=== PATIENT | female | born 1990 | race American Indian/Alaskan Native ===

== ENCOUNTER 2020-01-26 10:48 | Outpatient (REF) | payer MEDICAID, SELFPAY ==
--- NOTE | 2020-01-26 | US_ITS ---
EXAMINATION: ULTRASOUND PELVIS COMPLETE CLINICAL INFORMATION: Ovarian cyst. COMPARISON: Ultrasound pelvis 04/25/2019. TECHNIQUE: A transabdominal and transvaginal imaging of pelvis is performed. FINDINGS: The uterus is anteverted, anteflexed measuring 6.7 cm in length, 3.2 cm in AP and 4.3 cm in transverse dimension. It is homogeneous in echodensity. The endometrial thickness measures 0.4 cm. There is an IUD well located within the endometrial canal in satisfactory position. The right ovary measures 3.5 x 2.4 x 2.1 cm and volume 9.2 mL. There is anechoic cyst measuring 1.9 x 1.6 x 2.0 cm. Previously right ovary measured 3.2 x 2.0 x 2.6 cm. The left ovary measures 2.7 x 2.6 x 1.5 cm and volume 5.5 mL. There is a small anechoic cyst measuring 1.3 x 0.6 x 2.0 cm. US/US transvaginal IMPRESSION: Bilateral ovarian cyst. IUD appears in correct position within the endometrial canal. The uterus is otherwise unremarkable.
--- NOTE | 2020-01-26 | US_ITS ---
EXAMINATION: ULTRASOUND PELVIS COMPLETE CLINICAL INFORMATION: Ovarian cyst. COMPARISON: Ultrasound pelvis 04/25/2019. TECHNIQUE: A transabdominal and transvaginal imaging of pelvis is performed. FINDINGS: The uterus is anteverted, anteflexed measuring 6.7 cm in length, 3.2 cm in AP and 4.3 cm in transverse dimension. It is homogeneous in echodensity. The endometrial thickness measures 0.4 cm. There is an IUD well located within the endometrial canal in satisfactory position. The right ovary measures 3.5 x 2.4 x 2.1 cm and volume 9.2 mL. There is anechoic cyst measuring 1.9 x 1.6 x 2.0 cm. Previously right ovary measured 3.2 x 2.0 x 2.6 cm. The left ovary measures 2.7 x 2.6 x 1.5 cm and volume 5.5 mL. There is a small anechoic cyst measuring 1.3 x 0.6 x 2.0 cm. US/US pelvic complete IMPRESSION: Bilateral ovarian cyst. IUD appears in correct position within the endometrial canal. The uterus is otherwise unremarkable.
== END 2020-01-26 10:49 | disposition home or self-care (01) ==
LOC: HO.US 10:48
PROVIDERS: PCP Family Medicine; Visit Provider Family Medicine
DX: N83.209 Unspecified ovarian cyst, unspecified side (principal)
CPT/HCPCS: 76830; 76856

== ENCOUNTER → 2020-06-01 10:11 | Outpatient (BNVA) | payer MEDICAID, SELFPAY | PROVIDERS: Visit Provider Advanced Practice Midwife ==

== ENCOUNTER 2020-06-09 10:09 | Outpatient (REF) | payer MEDICAID, SELFPAY ==
[2020-06-10 09:20] LABS: CT PCR NOT DETECTED (Not Detect.); NG PCR NOT DETECTED (Not Detect.)
[2020-06-10 11:29] LABS: BV Int Neg Control Negative (Negative); BV Int Pos Control Positive (Positive)
[2020-06-14 23:02] LABS: HPV mRNA E6/E7 rflx Not Detected (Not Detected)
== END 2020-06-09 10:10 | disposition home or self-care (01) ==
LOC: HO.LAB 10:09
PROVIDERS: Visit Provider Advanced Practice Midwife
DX: Z01.419 Encounter for gynecological examination (general) (routine) without abnormal findings (principal); F41.8 Other specified anxiety disorders; M54.9 Dorsalgia, unspecified; Z20.2 Contact with and (suspected) exposure to infections with a predominantly sexual mode of transmission; Z79.899 Other long term (current) drug therapy
CPT/HCPCS: 36415; 87480; 87491; 87510; 87591; 87624; 87660; 88142

== ENCOUNTER 2020-07-24 22:59 | Emergency (ER) | payer MEDICAID, SELFPAY ==
--- NOTE | ~2020-07-24 | XR_ITS ---
EXAMINATION: XR FOOT, RIGHT CLINICAL INFORMATION: Foot pain COMPARISON: None TECHNIQUE: AP, lateral, and oblique views of the right foot. FINDINGS: There is mild hallux valgus present. The bones and soft tissues are otherwise normal. No fracture. Alignment is anatomic. Joint spaces are maintained. XR/XR foot RT min 3V IMPRESSION: Mild hallux valgus with no acute finding present.
[2020-07-24 23:06] VITALS: BP 110/63; PULSE 67; RESP 17; TEMP 36.6; O2SAT 100; BMI 27.4
--- NOTE | 2020-07-24 23:21 | ED_ITS ---
HPI - Extremity Injury (Lower) General Chief Complaint: Extremity Injury, Lower Stated Complaint: TOE INJ Time Seen by Provider: 07/24/20 23:16 Source: patient Mode of arrival: ambulatory Limitations: no limitations History of Present Illness HPI Narrative: Patient comes emergency room complaining of 1st toe pain on her right foot. Patient states that yesterday she was in a trampoline park playing with her daughter, patient does not recall any injury, patient states that this morning her right 1st toe started hurting. Patient denies fever or chills, patient is able to walk, but bears weight only on the lateral aspect of her foot. Patient denies redness , states it is slightly swollen. Related Data Home Medications Medication Instructions Recorded Confirmed baclofen 5 mg tablet 5 mg PO DAILY 06/09/20 bupropion HCl 150 mg 24 hr tablet, 150 mg PO QAM 06/09/20 06/09/20 extended release levonorgestrel 20 mcg/24 hours (6 INTRAUTERINE 06/09/20 06/09/20 yrs) 52 mg intrauterine device tramadol 50 mg tablet 50 mg PO DAILY 06/09/20 06/09/20 Allergies Allergy/AdvReac Type Severity Reaction Status Date / Time No Known Allergies Allergy Verified 07/24/20 23:06 Review of Systems Review of Systems: Constitutional : No Weight loss, No Fever, No Chills, No Night Sweats, No Fatigue, No Malaise ENT/Mouth : No Hearing loss, No Ear Pain, No Nasal Congestion, No Sinus Pain, No Hoarseness, No sore throat, No Rhinorrhea, No Swallowing Difficulty Eyes: No Eye Pain, No Swelling, No Redness, No Foreign Body, No Discharge, No Vision Changes Cardiovascular : No Chest Pain, No SOB, No Dyspnea on Exertion, No Orthopnea, No Edema, No Palpitations Respiratory : No Cough, No Sputum, No Wheezing, No Smoke Exposure, No Dyspnea Gastrointestinal : No Nausea, No Vomiting, No Diarrhea, No Constipation, No abdominal Pain, No Hematochezia, No Melena Genitourinary : no irregular bleeding, No Dysuria, No Urinary Frequency, No Hematuria, No Urinary Incontinence, No Urgency, No Flank Pain, No Urinary Flow Changes, No Hesitancy Musculoskeletal : Right 1st toe pain, No Myalgias, No Joint Swelling Skin : No Skin Lesions, No rash Neuro : No Weakness, No Numbness, No Paresthesias, No Loss of Consciousness, No Dizziness, No Headache Psych : No Anxiety/Panic, No Depression, No SI/HI/AH/VH, No Social Issues, Heme/Lymph: No Bruising, No Bleeding,No Lymphadenopathy Endocrine : No Polyuria, No Polydipsia, No Temperature Intolerance [facility] Past Medical History Medical History Anxiety Asthma Back pain Depression Surgical History Hx of appendectomy Family History Family History (Updated 06/09/20 @ 10:47 by Red Hensley [facility]) Paternal Grandfather Lung cancer Mother Depressed Anxiety Bipolar 1 disorder, depressed Social History Social History (Updated 06/09/20 @ 10:48 by Red Hensley [facility]) Alcohol intake: never Smoking Status: Never smoker Advance Directives: No Patient : No Gender identity: female Physical Exam Vital Signs: Vital Signs: Last Vital Signs Temp 97.9 F 07/24/20 23:06 Pulse 67 07/24/20 23:06 Resp 17 07/24/20 23:06 BP 110/63 07/24/20 23:06 Pulse Ox 100 07/24/20 23:06 Body Mass Index 27.4 Appearance: Alert. Oriented X3. No acute distress. Eyes: Pupils equal, round and reactive to light. ENT: Pharynx normal. Neck: Normal inspection. Neck supple. No lymph nodes noted. No crepitus CVS: Normal heart rate and rhythm. Pulses normal. Normal S1 and S2 Respiratory: No respiratory distress. Breath sounds normal. No Wheezing. No rales Abdomen: Soft and nontender. No rigidity. No distention. good BS x4 Skin: Skin warm and dry. Normal skin color. Normal skin turgor. Extremities: No lower extremity edema. First toe is slightly swollen on the dorsal aspect, patient is able to flex and extend all toes, no ankle pain, seems to have pain to palpation on the dorsal aspect of the right toe and the 1st metatarsal on the right side Neuro: Oriented X 3. No motor deficit. No sensory deficit. Moving all extermities. No slurred speech. Course Course Course Narrative: I discussed the x-ray with the patient, no fracture. Patient instructed to follow-up primary care physician. Patient likely having strain versus contusion. Patient declined prescription for pain management. MDM - Extremity Injury (Lower) Imaging Data Foot x-ray: Radiologist's impression: There is mild hallux valgus present. The bones and soft tissues are otherwise normal. No fracture. Alignment is anatomic. Joint spaces are maintained. XR/XR foot RT min 3V IMPRESSION: Mild hallux valgus with no acute finding present. Discharge Plan Discharge Clinical Impression: Foot pain, right Patient Disposition: Home, Self-Care Instructions: Metatarsalgia (DC) Additional Instructions: Please follow-up with your primary care physician tomorrow. If you have any worsening or new symptoms, please return to the emergency room or call 911 Prescriptions: No Action bupropion HCl [Wellbutrin XL] 150 mg tablet extended release 24 hr 150 mg PO QAM RF: 0 tramadol 50 mg tablet 50 mg PO DAILY RF: 0 baclofen 5 mg tablet 5 mg PO DAILY RF: 0 Mirena 20 mcg/24 hours (6 yrs) 52 mg intrauterine device intrauterine RF: 0
[2020-07-24] MEDS: Acetaminophen 325 MG TABLET 650 MG PO (23:34)
== END 2020-07-25 00:18 | disposition home or self-care (01) ==
PROVIDERS: Emergency Provider Emergency Medicine; PCP Family Medicine
DX: S99.921A Unspecified injury of right foot, initial encounter (principal); M79.671 Pain in right foot; M20.11 Hallux valgus (acquired), right foot; Y93.44 Activity, trampolining; Y92.838 Other recreation area as the place of occurrence of the external cause; Y99.8 Other external cause status; Z79.899 Other long term (current) drug therapy
CPT/HCPCS: 73630; 99284

== ENCOUNTER 2020-08-01 12:37 | Outpatient (REF) | payer MEDICAID, SELFPAY ==
[2020-08-01 13:10] LABS: COVID-19 Test Negative (Negative); IDNOW Serial# 55D5AD1C
== END 2020-08-01 12:38 | disposition home or self-care (01) ==
LOC: HO.LAB 12:37
PROVIDERS: Visit Provider Internal Medicine
DX: Z20.822 Contact with and (suspected) exposure to COVID-19 (principal)
CPT/HCPCS: 36415; 87635; C9803

== ENCOUNTER 2020-11-28 09:05 | Outpatient (REF) | payer MEDICAID, SELFPAY | END 2020-11-28 09:06 | disposition home or self-care (01) | LOC: HO.LAB 09:05 | PROVIDERS: PCP Family Medicine; Visit Provider Internal Medicine | DX: Z20.822 Contact with and (suspected) exposure to COVID-19 (principal) | CPT/HCPCS: C9803; U0003; U0005 ==

== ENCOUNTER 2021-01-24 08:37 | Emergency (ER) | payer MEDICAID, SELFPAY ==
--- NOTE | ~2021-01-24 | CT_ITS ---
EXAMINATION: CT ABDOMEN AND PELVIS WITHOUT CONTRAST CLINICAL INFORMATION: Left flank and left upper quadrant pain. COMPARISON: CT abdomen and pelvis with contrast 03/31/2010. TECHNIQUE: Multidetector volumetric imaging was performed from the superior aspect of the liver through the pubic symphysis. No oral or intravenous contrast. Sagittal and coronal reformatted images were obtained on the technologist's workstation. This CT examination was performed using dose optimization techniques as appropriate, variously including the following: *Automated exposure control *Adjustment of mA and/or kV according to patient size (this includes techniques or standardized protocols for targeted exams where dose is matched to indication/reason for exam; i.e. extremities or head) *Use of iterative reconstruction technique DLP: 575 mGy-cm FINDINGS: LUNG BASES: The visualized lung bases are unremarkable. LIVER, GALLBLADDER, AND BILIARY TREE: The liver is normal in size, shape, and attenuation. No focal hepatic lesion or biliary ductal dilatation is present. The gallbladder is unremarkable with no evidence of radiopaque gallstones, gallbladder wall thickening, or obvious pericholecystic inflammatory changes. PANCREAS: Unremarkable. SPLEEN: Unremarkable. ADRENAL GLANDS: Unremarkable. KIDNEYS AND URETERS: The kidneys are normal in size, shape, and attenuation. No hydronephrosis, hydroureter, or calculi seen. No perinephric stranding. BLADDER: Unremarkable. GASTROINTESTINAL TRACT: There is no bowel obstruction or focal inflammatory changes in the bowel or adjacent mesentery. There has been prior appendectomy. There is no ascites or fluid collection. ABDOMINAL WALL: No significant hernia is appreciated. Borderline fat-containing umbilical hernia under 2 cm. LYMPH NODES: There are scattered small nodes in the mesentery. No bulky adenopathy. No retroperitoneal or deep pelvic or inguinal lymphadenopathy. VASCULAR: Unremarkable. PELVIC VISCERA: IUD in position. No adnexal mass. OSSEOUS STRUCTURES: Pectus excavatum. Bilateral L5 spondylolysis with grade 2 spondylolisthesis and degenerative changes lumbosacral junction. CT/CT abdomen pelvis wo con IMPRESSION: 1. No hydronephrosis, calculi, or perinephric stranding. 2. Prior appendectomy. No bowel obstruction or focal inflammatory changes. 3. Multiple small mesenteric nodes. No lymphadenopathy. 4. Pectus excavatum. Bilateral L5 spondylolysis with grade 2 spondylolisthesis.
[2021-01-24 08:55] VITALS: BP 104/52; PULSE 75; RESP 18; TEMP 36.9; O2SAT 99; BMI 27.7
[2021-01-24 09:25] LABS: Appearance Urine HAZY; Color Urine YELLOW; Glucose Urine UA NEG (NEG); Leukocyte Esterase Urine NEG (NEG); Nitrite Urine NEG (NEG); Specific Gravity - Urine >= 1.030 (1.005-1.025); Urine Blood TRACE (NEG); Urine Ketones NEG (NEG); Urine Protein NEG (NEG-TRACE)
[2021-01-24 10:02] LABS: Bacteria Urine TRACE /LPF; Mucus Urine 2+ /LPF; RBC Urine 0-2 /HPF (0); Squamous Epithelial Cell Urine 2+ /LPF; WBC Urine 0 /HPF (0-4)
[2021-01-24] MEDS: 0.9 % Sodium Chloride 1,000 ML 999 ML IVCONT (10:07)
[2021-01-24 10:08] LABS: MANUAL DIFF FLAG NO
[2021-01-24 10:09] LABS: Basophils Percent Auto 0.5 % (0-2); Eosinophils Percent Auto 0.7 % (0-4); Hematocrit 36.9 % (37.0-47.0); Hemoglobin 12.5 g/dl (12.0-16.0); Imm Gran Abs Auto 0.01 X10*3/uL (0.00-0.03); Imm Gran Pct Auto 0.2 % (0.0-0.4); Lymphocytes Absolute Auto 1.5 X10*3/uL (1.2-4.9); Lymphocytes Percent Auto 25.5 % (20-40); Mean Corpuscular HGB Conc 33.9 g/dl (31.0-35.0); Mean Corpuscular Volume 88.7 fL (80.0-98.0); Mean Platelet Volume 9.6 fL (9.4-12.3); Monocytes Absolute Auto 0.4 X10*3/uL (0.1-1.2); Monocytes Percent Auto 6.3 % (2-11); Neutrophils Absolute Auto 4.04 x10*3/uL (2.0-8.3); Neutrophils Percent Auto 66.8 % (45-73); Platelet Count 248 X10*3/uL (160-400); Red Blood Count 4.16 X10*6/uL (4.20-5.50)
[2021-01-24 10:22] LABS: UPreg QC Valid YES; Urine Pregnancy NEGATIVE (NEGATIVE)
--- NOTE | 2021-01-24 10:25 | ED_ITS ---
HPI - Abdominal Pain General Chief Complaint: Abdominal Pain Stated Complaint: lt side abd & back pain Time Seen by Provider: 01/24/21 09:52 Source: patient Mode of arrival: ambulatory Limitations: no limitations History of Present Illness HPI narrative: 30 years old female came in for evaluation of abdominal pain. Abdominal pain started 2 days ago mostly in the left upper quadrant area, radiates to left flank area, pain is intermittent, moderate 5 out of 10, no relieving factor, no aggravating factor, pain is associated with nausea but no vomiting, normal bowel movements, no dysuria, no frequency urination, no vaginal bleeding, no vaginal discharge, no fever, no chills. Related Data Home Medications Medication Instructions Recorded Confirmed baclofen 5 mg tablet 5 mg PO DAILY 06/09/20 bupropion HCl 150 mg 24 hr tablet, 150 mg PO QAM 06/09/20 06/09/20 extended release (Wellbutrin XL) levonorgestrel 20 mcg/24 hours (7 INTRAUTERINE 06/09/20 06/09/20 yrs) 52 mg intrauterine device (Mirena) tramadol 50 mg tablet 50 mg PO DAILY 06/09/20 06/09/20 Allergies Allergy/AdvReac Type Severity Reaction Status Date / Time No Known Allergies Allergy Verified 07/24/20 23:06 Review of Systems Review of Systems All other systems are reviewed and are negative Constitutional: Reports as per HPI and Reports no additional constitutional complaints Eyes: Reports as per HPI and Reports no additional eye complaints Reports system reviewed and no additional complaints, except as documented Cardiovascular: Reports as per HPI and Reports no additional cardiovascular complaints Respiratory: Reports as per HPI and Reports no additional respiratory complaints Gastrointestinal: Reports as per HPI and Reports no additional gastrointestinal complaints Genitourinary: Reports no additional female genitourinary complaints Musculoskeletal: Reports no additional musculoskeletal complaints Skin/Breast: Reports system reviewed and no additional complaints, except as docu Psychiatric: Reports no additional psychiatric complaints Endocrine: Reports no additional endocrine complaints Hematologic/Lymphatic: Reports no additional hematologic/lymphatic complaints Allergic/Immunologic: Reports no additional allergic/immunologic complaints Reports system reviewed and no additional complaints, except as documented and Reports Abnormal speech present Physical Exam Vital Signs: Vital Signs: Last Vital Signs Temp 98.4 F 01/24/21 08:55 Pulse 75 01/24/21 08:55 Resp 18 01/24/21 08:55 BP 104/52 L 01/24/21 08:55 Pulse Ox 99 01/24/21 08:55 Body Mass Index 27.7 Vital signs have been reviewed as appeared to be correct. Blood pressure normal. Heart rate normal. Respiration rate normal. Temperature normal. Oxygen saturation normal. Appearance: Alert. Oriented X3. No acute distress. Head: Normal external exam. Normocephalic. Atraumatic. No [place] signs noted. No raccoon eyes noted Eyes: PERRLA. EOMI. Conjunctiva and sclera normal. Eyelids normal. ENT: TM's Normal. Pharynx normal. Uvula midline. Moist mucous membranes. No trismus noted. No drooling noted. No muffled voice noted. Neck: Normal inspection. Neck supple. FROM. No adenopathy. Thyroid Normal. No meningeal signs. No neck mass noted. CVS: Normal heart rate and rhythm. Heart sound normal. No murmurs noted. Pulses normal throughout. Respiratory: No respiratory distress. Painless inspiration. Breath sounds normal. No wheezes/rales/rhonchi noted. Chest nontender. No accessory muscle usage noted or decreased air movement noted. Abdomen: Soft and nontender. Bowel sounds normal in all 4 quadrants. No distention noted. No organomegaly noted. No visible injury noted. Back: No CVA tenderness. Full range of motion noted. Skin: Skin warm and dry. Normal skin color. Normal skin turgor. No rashes/lesions/lacerations noted. Extremities: No lower extremity edema. Extremities exhibit normal range of motion. Extremities nontender. Neuro: Oriented X 3. Cranial nerve exam: II-XII are grossly intact No motor deficit. No sensory deficit. Reflexes normal. Course Course Course Narrative: Assessment and plan. 30-year-old female came in for evaluation of left upper abdominal pain, no fever chills, unremarkable labs, patient had also unremarkable abdominal CT. Will discharge, instructed to use Tylenol/ibuprofen p.r.n. pain. MDM - Abdominal Pain Lab Data Attestation: I reviewed the patient's lab results. Result diagrams: 01/24/21 09:57 01/24/21 09:57 Labs: Lab Results 01/24/21 01/24/21 01/24/21 Range/Units 09:17 09:30 09:57 WBC 6.0 (4.8-10.8) X10*3/uL RBC 4.16 L (4.20-5.50) X10*6/uL Hgb 12.5 (12.0-16.0) g/dl Hct 36.9 L (37.0-47.0) % MCV 88.7 (80.0-98.0) fL MCH 30.0 (27.0-33.0) pg MCHC 33.9 (31.0-35.0) g/dl RDW 12.0 (11.0-16.0) % Plt Count 248 (160-400) X10*3/uL MPV 9.6 (9.4-12.3) fL Immature Gran % (Auto) 0.2 (0.0-0.4) % Neut % (Auto) 66.8 (45-73) % Lymph % (Auto) 25.5 (20-40) % [place] % (Auto) 6.3 (2-11) % Eos % (Auto) 0.7 (0-4) % Baso % (Auto) 0.5 (0-2) % Lymph # (Auto) 1.5 (1.2-4.9) X10*3/uL [place] # (Auto) 0.4 (0.1-1.2) X10*3/uL Eos # (Auto) 0.0 (0.0-0.4) X10*3/uL Baso # (Auto) 0.0 (0.0-0.2) X10*3/uL Abs Immat Gran (auto) 0.01 (0.00-0.03) X10*3/uL Absolute Neuts (auto) 4.04 (2.0-8.3) x10*3/uL Absolute Nucleated RBC 0.000 (0.0-0.012) X10*3/uL Nucleated RBC % (auto) 0.0 (0.0-0.2) /100WBC Sodium (135-145) mmol/L Potassium (3.3-5.1) mmol/L Chloride (96-108) mmol/L Carbon Dioxide (22-29) mmol/L Anion Gap (12-20) BUN (9-16) mg/dL Creatinine (0.5-1.4) mg/dL Estim Creat Clear Calc Estimated GFR Random Glucose (60-115) mg/dL Calcium (8.4-10.2) mg/dL Total Bilirubin (0.0-1.0) mg/dL Direct Bilirubin (0.0-0.5) mg/dL AST (5-31) U/L ALT (0-31) U/L Alkaline Phosphatase (39-117) U/L Total Protein (6.5-8.0) g/dL Albumin (3.5-5.0) g/dL Lipase (8-78) U/L Urine Color YELLOW Urine Appearance HAZY Urine pH 6.0 (5.0-8.0) Ur Specific [place] >= 1.030 H (1.005-1.025) Urine Protein NEG (NEG-TRACE) MG/DL Urine Glucose (UA) NEG (NEG) MG/DL Urine Ketones NEG (NEG) MG/DL Urine Blood TRACE (NEG) Urine Nitrite NEG (NEG) Ur Leukocyte Esterase NEG (NEG) Urine RBC 0-2 (0) /HPF Urine WBC 0 (0-4) /HPF Ur Squamous Epith Cells 2+ /LPF Urine Bacteria TRACE /LPF Urine Mucus 2+ /LPF Urine Test NEGATIVE (NEGATIVE) 01/24/21 Range/Units 09:57 WBC (4.8-10.8) X10*3/uL RBC (4.20-5.50) X10*6/uL Hgb (12.0-16.0) g/dl Hct (37.0-47.0) % MCV (80.0-98.0) fL MCH (27.0-33.0) pg MCHC (31.0-35.0) g/dl RDW (11.0-16.0) % Plt Count (160-400) X10*3/uL MPV (9.4-12.3) fL Immature Gran % (Auto) (0.0-0.4) % Neut % (Auto) (45-73) % Lymph % (Auto) (20-40) % [place] % (Auto) (2-11) % Eos % (Auto) (0-4) % Baso % (Auto) (0-2) % Lymph # (Auto) (1.2-4.9) X10*3/uL [place] # (Auto) (0.1-1.2) X10*3/uL Eos # (Auto) (0.0-0.4) X10*3/uL Baso # (Auto) (0.0-0.2) X10*3/uL Abs Immat Gran (auto) (0.00-0.03) X10*3/uL Absolute Neuts (auto) (2.0-8.3) x10*3/uL Absolute Nucleated RBC (0.0-0.012) X10*3/uL Nucleated RBC % (auto) (0.0-0.2) /100WBC Sodium 136 (135-145) mmol/L Potassium 3.9 (3.3-5.1) mmol/L Chloride 105 (96-108) mmol/L Carbon Dioxide 25 (22-29) mmol/L Anion Gap 10 L (12-20) BUN 15 (9-16) mg/dL Creatinine 0.69 (0.5-1.4) mg/dL Estim Creat Clear Calc 125.6 Estimated GFR > 60 Random Glucose 93 (60-115) mg/dL Calcium 8.8 (8.4-10.2) mg/dL Total Bilirubin 0.8 (0.0-1.0) mg/dL Direct Bilirubin 0.3 (0.0-0.5) mg/dL AST 20 (5-31) U/L ALT 13 (0-31) U/L Alkaline Phosphatase 53 (39-117) U/L Total Protein 7.0 (6.5-8.0) g/dL Albumin 4.4 (3.5-5.0) g/dL Lipase 21 (8-78) U/L Urine Color Urine Appearance Urine pH (5.0-8.0) Ur Specific [place] (1.005-1.025) Urine Protein (NEG-TRACE) MG/DL Urine Glucose (UA) (NEG) MG/DL Urine Ketones (NEG) MG/DL Urine Blood (NEG) Urine Nitrite (NEG) Ur Leukocyte Esterase (NEG) Urine RBC (0) /HPF Urine WBC (0-4) /HPF Ur Squamous Epith Cells /LPF Urine Bacteria /LPF Urine Mucus /LPF Urine Test (NEGATIVE) Imaging Data CT scan - abdomen: Radiologist's impression: 1. No hydronephrosis, calculi, or perinephric stranding. 2. Prior appendectomy. No bowel obstruction or focal inflammatory changes. 3. Multiple small mesenteric nodes. No lymphadenopathy. 4. Pectus excavatum. Bilateral L5 spondylolysis with grade 2 spondylolisthesis. Discharge Plan Discharge Clinical Impression: Abdominal pain Patient Disposition: Home, Self-Care Instructions: Abdominal Pain (ED) Prescriptions: No Action bupropion HCl [Wellbutrin XL] 150 mg tablet extended release 24 hr 150 mg PO QAM RF: 0 tramadol 50 mg tablet 50 mg PO DAILY RF: 0 baclofen 5 mg tablet 5 mg PO DAILY RF: 0 Mirena 20 mcg/24 hours (6 yrs) 52 mg intrauterine device intrauterine RF: 0 Referrals: Kellen Mccray DO [Primary Care Provider] - 2 days [facility] Past Medical History Medical History Anxiety Asthma Back pain Depression Surgical History Hx of appendectomy Family History Family History Paternal Grandfather Lung cancer Mother Depressed Anxiety Bipolar 1 disorder, depressed Social History Social History Alcohol intake: never Advance Directives: No Patient : No Gender identity: Female
[2021-01-24 10:34] LABS: Alanine Aminotransferase 13 U/L (0-31); Albumin Level 4.4 g/dL (3.5-5.0); Alkaline Phosphatase 53 U/L (39-117); Anion Gap 10 (12-20); Aspartate Amino Transferase 20 U/L (5-31); Bilirubin Direct 0.3 mg/dL (0.0-0.5); Bilirubin Total 0.8 mg/dL (0.0-1.0); Blood Urea Nitrogen 15 mg/dL (9-16); Calcium 8.8 mg/dL (8.4-10.2); Carbon Dioxide 25 mmol/L (22-29); Chloride 105 mmol/L (96-108); Creatinine Clr Calc Pharmacy 125.6; Estimated Glomerular Filt Rate > 60; Glucose Random 93 mg/dL (60-115); Lipase 21 U/L (8-78); Potassium 3.9 mmol/L (3.3-5.1); Sodium 136 mmol/L (135-145)
[2021-01-24] MEDS: Ketorolac Tromethamine 15 MG/ML VIAL IVPUSH (12:50)
== END 2021-01-24 13:41 | disposition home or self-care (01) ==
PROVIDERS: Emergency Provider Emergency Medicine; PCP Family Medicine
DX: R10.12 Left upper quadrant pain (principal); J45.909 Unspecified asthma, uncomplicated
CPT/HCPCS: 36415; 74176; 80048; 80076; 81001; 81025; 83690; 85025; 87086; 96361; 96374; 99284; J1885

== ENCOUNTER → 2021-04-02 10:52 | Outpatient (BNVA) | payer MEDICAID, SELFPAY | PROVIDERS: PCP Family Medicine; Visit Provider Advanced Practice Midwife ==

== ENCOUNTER 2021-05-03 07:48 | Emergency (ER) | payer MEDICAID, SELFPAY ==
--- NOTE | ~2021-05-03 | US_ITS ---
EXAMINATION: US PELVIS TRANSVAGINAL CLINICAL INFORMATION: Bilateral pelvic pain. Question cyst. COMPARISON: CT abdomen of May 03, 2021 and pelvic study of January 26, 2020 TECHNIQUE: Transcutaneous and transvaginal pelvic ultrasound. Transvaginal scanning was performed after voiding to better evaluate the endometrium and adnexa. FINDINGS: The uterus measures 8.2 x 3.8 x 4.4 cm. The uterus is anteverted. No suspicious abnormalities region of the cervix. The uterine contour is smooth. The endometrium measures 0.7 cm. Intrauterine device appears in normal position. No focal abnormalities within the myometrium. The right ovary measures approximately 3.1 x 1.5 x 1.9 cm. The calculated right ovarian volume is approximately 4.6 mL. There is normal vascular flow to the ovary. There are numerous follicular cysts present. No abnormal masses identified. The left ovary measures 3.8 x 2.1 x 3.7 cm. The calculated left ovarian volume is approximately 15.5 mL. Follicular cysts present. Normal vascular flow. There is moderate free fluid present about the pelvis. US/US pelvic ovarian doppler IMPRESSION: No adnexal abnormality appreciated. Moderate pelvic free fluid. Intrauterine device appears in good position.
--- NOTE | ~2021-05-03 | CT_ITS ---
EXAMINATION: CT ABDOMEN AND PELVIS WITH CONTRAST CLINICAL INFORMATION: Upper abdominal pain. Low pelvic pain. COMPARISON: CT abdomen and pelvis 01/24/2021. TECHNIQUE: Multidetector volumetric images were obtained from the superior aspect of the liver through the pubic symphysis following administration 85 mL of Omnipaque 350 intravenous contrast. Sagittal and coronal reformatted images were obtained on the technologist's workstation. Oral contrast: No This CT examination was performed using dose optimization techniques as appropriate, variously including the following: *Automated exposure control *Adjustment of mA and/or kV according to patient size (this includes techniques or standardized protocols for targeted exams where dose is matched to indication/reason for exam; i.e. extremities or head) *Use of iterative reconstruction technique DLP: 600 mGy-cm FINDINGS: LUNG BASES: The lung bases are clear. The heart size is normal. The anterior chest wall appears asymmetric. LIVER, GALLBLADDER, AND BILIARY TREE: The liver is normal in size, shape, and attenuation. There is an 8 mm hypodensity in the right hepatic lobe measuring 43 Hounsfield units on axial image 9/3.. Is a new finding since 01/24/2021. No additional lesions are seen. There is no intrahepatic ductal dilatation. The gallbladder is unremarkable with no evidence of radiopaque gallstones, gallbladder wall thickening, or obvious pericholecystic inflammatory changes. PANCREAS: Unremarkable. SPLEEN: Unremarkable. ADRENAL GLANDS: Unremarkable. KIDNEYS AND URETERS: The kidneys are normal in size, shape, and attenuation. No hydronephrosis, hydroureter, or calculi seen. No perinephric stranding. BLADDER: Unremarkable. GASTROINTESTINAL TRACT: There is scattered stool and gas seen throughout the colon without significant distention. The small bowel loops are normal caliber. The stomach is nondistended. ABDOMINAL WALL: No significant hernia seen. LYMPH NODES: Small shotty mesenteric lymph nodes. VASCULAR: Unremarkable. PELVIC VISCERA: The uterus is anteverted with an IUD in place. There is small amount of free fluid. There is no adnexal mass. There are small shotty lymph nodes seen in the inguinal region. OSSEOUS STRUCTURES: There is grade 2 anterolisthesis L5-S1 with degenerative vacuum disc phenomena L5-S1 disc level. 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 CT/CT abdomen pelvis w con IMPRESSION: Small amount of free fluid in cul-de-sac. Mild constipation. Appendectomy changes. No acute intra-abdominal process seen. No major change from previous exam 01/24/2021
--- NOTE | ~2021-05-03 | US_ITS ---
EXAMINATION: US PELVIS TRANSVAGINAL CLINICAL INFORMATION: Bilateral pelvic pain. Question cyst. COMPARISON: CT abdomen of May 03, 2021 and pelvic study of January 26, 2020 TECHNIQUE: Transcutaneous and transvaginal pelvic ultrasound. Transvaginal scanning was performed after voiding to better evaluate the endometrium and adnexa. FINDINGS: The uterus measures 8.2 x 3.8 x 4.4 cm. The uterus is anteverted. No suspicious abnormalities region of the cervix. The uterine contour is smooth. The endometrium measures 0.7 cm. Intrauterine device appears in normal position. No focal abnormalities within the myometrium. The right ovary measures approximately 3.1 x 1.5 x 1.9 cm. The calculated right ovarian volume is approximately 4.6 mL. There is normal vascular flow to the ovary. There are numerous follicular cysts present. No abnormal masses identified. The left ovary measures 3.8 x 2.1 x 3.7 cm. The calculated left ovarian volume is approximately 15.5 mL. Follicular cysts present. Normal vascular flow. There is moderate free fluid present about the pelvis. US/US pelvic and transvaginal IMPRESSION: No adnexal abnormality appreciated. Moderate pelvic free fluid. Intrauterine device appears in good position.
[2021-05-03 08:10] VITALS: BP 113/49; PULSE 68; RESP 14; O2SAT 99
[2021-05-03 08:12] VITALS: RESP 18; O2SAT 98; BMI 27.4
--- NOTE | 2021-05-03 08:25 | PC.NURSE ---
reports abd pain diffusely, denies n/v/d. no obvious distress. basic labs drawn and iv established. awaiting primary eval by provider.
[2021-05-03 08:28] LABS: Hematocrit 37.9 % (37.0-47.0); Hemoglobin 12.6 g/dl (12.0-16.0); Mean Corpuscular HGB Conc 33.2 g/dl (31.0-35.0); Mean Corpuscular Hemoglobin 29.3 pg (27.0-33.0); Mean Corpuscular Volume 88.1 fL (80.0-98.0); Mean Platelet Volume 9.7 fL (9.4-12.3); Platelet Count 223 X10*3/uL (160-400); Red Cell Distribution Width 11.9 % (11.0-16.0)
[2021-05-03 08:50] LABS: COVID-19 Test Negative (Negative); IDNOW Serial# 55D5AD1C
[2021-05-03 08:51] LABS: Anion Gap 9 (12-20); Blood Urea Nitrogen 19 mg/dL (9-16); Calcium 8.9 mg/dL (8.4-10.2); Carbon Dioxide 28 mmol/L (22-29); Chloride 102 mmol/L (96-108); Creatinine Clr Calc Pharmacy 118.7; Estimated Glomerular Filt Rate > 60; Glucose Random 101 mg/dL (60-115); Lipase 25 U/L (8-78); Potassium 3.8 mmol/L (3.3-5.1); Sodium 135 mmol/L (135-145)
[2021-05-03] MEDS: ondansetron HCL 4 MG/2 ML VIAL IVPUSH (08:56)
[2021-05-03] MEDS: Morphine Sulfate 4 MG/ML CARTRIDGE IVPUSH ×2 (08:56→11:41)
[2021-05-03] MEDS: 0.9 % Sodium Chloride 1,000 ML 999 ML IV (08:57)
[2021-05-03 09:37] LABS: HCG Quantitative < 2 mIU/mL
[2021-05-03 10:07] LABS: Appearance Urine CLEAR; Color Urine STRAW; Glucose Urine UA NEG (NEG); Leukocyte Esterase Urine TRACE (NEG); Nitrite Urine NEG (NEG); Specific Gravity - Urine <= 1.005 (1.005-1.025); UACC Culture Trigger YES; Urine Blood TRACE (NEG); Urine Ketones NEG (NEG); Urine Protein NEG (NEG-TRACE)
[2021-05-03 10:10] LABS: Urine Pregnancy NEGATIVE (NEGATIVE)
[2021-05-03 10:11] LABS: UPreg QC Valid YES
[2021-05-03 11:00] LABS: RBC Urine 0 /HPF (0); Squamous Epithelial Cell Urine 1+ /LPF
--- NOTE | 2021-05-03 11:39 | ED.ABDPAIN ---
HPI - Abdominal Pain General Chief Complaint: Abdominal Pain Stated Complaint: abd pain Time Seen by Provider: 05/03/21 08:05 Source: patient Mode of arrival: ambulatory Limitations: no limitations History of Present Illness HPI narrative: 31-year-old female presents with sudden severe abdominal pain that woke her from sleep at 07:00 this morning. Patient states the pain started in her upper left abdomen and migrated to her bilateral pelvis. She feels pressure in her back from the pain. Patient had nausea when pain 1st started, she is not nauseous now. The pain was constant and was a 10/10, and is slowly getting better, now pain is 7/10. Patient has an IUD, and is due for a new IUD in May. She has had one and one vaginal . no concerns for STDs. Regular bowel movements, no dark tarry or bloody stools She has a history of ovarian cysts, and states that it feels like ovarian cyst. No vaginal discharge, no vaginal bleeding, no dysuria, no urinary frequency or urgency, no hematuria, no fevers. History of appendectomy. Related Data Home Medications Medication Instructions Recorded Confirmed baclofen 5 mg tablet 5 mg PO DAILY 06/09/20 bupropion HCl 150 mg 24 hr tablet, 150 mg PO QAM 06/09/20 06/09/20 extended release (Wellbutrin XL) levonorgestrel 20 mcg/24 hours (7 INTRAUTERINE 06/09/20 06/09/20 yrs) 52 mg intrauterine device (Mirena) tramadol 50 mg tablet 50 mg PO DAILY 06/09/20 06/09/20 acetaminophen 650 mg 0 mg PO 04/02/21 tablet,extended release (Mapap Arthritis Pain) baclofen 10 mg tablet 10 mg PO TID 04/02/21 buspirone 10 mg tablet 10 mg PO BID 04/02/21 cholecalciferol (vitamin D3) 50 50 mcg PO DAILY 04/02/21 mcg (2,000 unit) capsule diclofenac sodium 50 mg 50 mg PO BID 04/02/21 tablet,delayed release pantoprazole 20 mg tablet,delayed 20 mg PO DAILY 04/02/21 release simethicone 125 mg capsule 0 mg PO 04/02/21 Previous Rx's Medication Instructions Recorded ketorolac 10 mg tablet 10 mg PO TID 3 Days #9 tab 05/03/21 Allergies Allergy/AdvReac Type Severity Reaction Status Date / Time No Known Allergies Allergy Verified 04/02/21 10:53 Review of Systems Constitutional: Denies body ache(s), Denies chills, Denies fatigue, Denies fever(s), Denies headache(s), Denies malaise and Denies weakness Eyes: Denies diplopia Denies vertigo, Denies dizziness, Denies otalgia, Denies headache(s), Denies mouth pain, Denies post nasal drip, Denies sinus pain, Denies sinus pressure, Denies sore throat and Denies throat swelling Cardiovascular: Denies chest pain, Denies syncope, Denies leg edema, Denies lightheadedness, Denies Loss of Consciousness, Denies palpitations and Denies dyspnea Respiratory: Denies chest congestion, Denies cough and Denies dyspnea Gastrointestinal: Reports abdominal pain, Denies hematochezia, Denies constipation, Denies diarrhea, Reports nausea and Denies vomiting Genitourinary: Denies genital pruritis, Denies genital lesions, Denies dysmenorrhea, Denies dysuria, Reports pelvic pain, Denies sexual dysfunction, Denies flank pain, Denies urinary incontinence, Denies urinary hesitancy, Denies urinary urgency, Denies vaginal discharge and Denies vaginal pruritus Musculoskeletal: Reports no additional musculoskeletal complaints Denies confusion, Denies vertigo, Denies dizziness, Denies syncope, Denies headache(s) and Denies weakness Psychiatric: Denies anxiety, Denies confusion and Denies depression Endocrine: Denies fatigue and Denies palpitations Allergic/Immunologic: Denies throat swelling PMFSH Past Medical History Medical History Anxiety Asthma Back pain Depression Surgical History Hx of appendectomy Family History Family History Paternal Grandfather Lung cancer Mother Depressed Anxiety Bipolar 1 disorder, depressed Social History Social History Alcohol intake: current Alcohol intake frequency: holidays/special occasions only Patient Tobacco Use Status: Never used Tobacco Use of substances other than those prescribed or required for medical reasons: No Advance Directives: No Advance Directives Information Provided: Yes Patient : No Gender identity: Female Course Course Course Narrative: 31-year-old female with abdominal pain that woke her out from sleep this morning and migrated to her lower abdomen and pelvis. On exam, patient in no apparent distress,, under to palpation in upper left and upper right abdomen, tender in lower left lower right abdomen. No guarding. Patient given morphine, fluids, Zofran Patient is not , chemistry and hematology are within normal limits, no elevated lipase, COVID negative. Urine shows trace leukocyte esterase. CT shows a small amount of free fluid in cul-de-sac with mild constipation, no significant change from January 2021. will get ultrasound to more fully evaluate ovaries and rule out torsion Reevaluation(s) Reevaluation #1: US shows normal vascular flow discussed results with patient, counseled patient to follow-up with primary care provider, primary care provider may give her a GI referral, As this is her 2nd presentation to the emergency room in 3 months for abdominal pain. Told patient to return to emergency room she had a sudden severe abdominal pain, fevers, intractable vomiting, or any other new or concerning symptoms. Patient verbalized agreement understanding of plan. US/US pelvic ovarian doppler IMPRESSION: No adnexal abnormality appreciated. ? Moderate pelvic free fluid. ? Intrauterine device appears in good position. MDM - Abdominal Pain Lab Data Result diagrams: 05/03/21 08:21 05/03/21 08:21 Labs: Lab Results 05/03/21 05/03/21 05/03/21 Range/Units 08:21 08:21 08:21 WBC 7.0 (4.8-10.8) X10*3/uL RBC 4.30 (4.20-5.50) X10*6/uL Hgb 12.6 (12.0-16.0) g/dl Hct 37.9 (37.0-47.0) % MCV 88.1 (80.0-98.0) fL MCH 29.3 (27.0-33.0) pg MCHC 33.2 (31.0-35.0) g/dl RDW 11.9 (11.0-16.0) % Plt Count 223 (160-400) X10*3/uL MPV 9.7 (9.4-12.3) fL Absolute Nucleated RBC 0.000 (0.0-0.012) X10*3/uL Nucleated RBC % (auto) 0.0 (0.0-0.2) /100WBC Sodium 135 (135-145) mmol/L Potassium 3.8 (3.3-5.1) mmol/L Chloride 102 (96-108) mmol/L Carbon Dioxide 28 (22-29) mmol/L Anion Gap 9 L (12-20) BUN 19 H (9-16) mg/dL Creatinine 0.72 (0.5-1.4) mg/dL Estim Creat Clear Calc 118.7 Estimated GFR > 60 Random Glucose 101 (60-115) mg/dL Calcium 8.9 (8.4-10.2) mg/dL Lipase 25 (8-78) U/L Beta HCG, Quant < 2 mIU/mL Urine Color Urine Appearance Urine pH (5.0-8.0) Ur Specific [place] (1.005-1.025) Urine Protein (NEG-TRACE) MG/DL Urine Glucose (UA) (NEG) MG/DL Urine Ketones (NEG) MG/DL Urine Blood (NEG) Urine Nitrite (NEG) Ur Leukocyte Esterase (NEG) Urine RBC (0) /HPF Urine WBC (0-4) /HPF Ur Squamous Epith Cells /LPF Urine Bacteria /LPF Urine Test (NEGATIVE) COVID-19 (SHAAN) Negative (Negative) COVID-19 Clin Com See Note 05/03/21 05/03/21 Range/Units 09:59 09:59 WBC (4.8-10.8) X10*3/uL RBC (4.20-5.50) X10*6/uL Hgb (12.0-16.0) g/dl Hct (37.0-47.0) % MCV (80.0-98.0) fL MCH (27.0-33.0) pg MCHC (31.0-35.0) g/dl RDW (11.0-16.0) % Plt Count (160-400) X10*3/uL MPV (9.4-12.3) fL Absolute Nucleated RBC (0.0-0.012) X10*3/uL Nucleated RBC % (auto) (0.0-0.2) /100WBC Sodium (135-145) mmol/L Potassium (3.3-5.1) mmol/L Chloride (96-108) mmol/L Carbon Dioxide (22-29) mmol/L Anion Gap (12-20) BUN (9-16) mg/dL Creatinine (0.5-1.4) mg/dL Estim Creat Clear Calc Estimated GFR Random Glucose (60-115) mg/dL Calcium (8.4-10.2) mg/dL Lipase (8-78) U/L Beta HCG, Quant mIU/mL Urine Color STRAW Urine Appearance CLEAR Urine pH 6.0 (5.0-8.0) Ur Specific [place] <= 1.005 (1.005-1.025) Urine Protein NEG (NEG-TRACE) MG/DL Urine Glucose (UA) NEG (NEG) MG/DL Urine Ketones NEG (NEG) MG/DL Urine Blood TRACE (NEG) Urine Nitrite NEG (NEG) Ur Leukocyte Esterase TRACE H (NEG) Urine RBC 0 (0) /HPF Urine WBC 1-4 (0-4) /HPF Ur Squamous Epith Cells 1+ /LPF Urine Bacteria NONE /LPF Urine Test NEGATIVE (NEGATIVE) COVID-19 (SHAAN) (Negative) COVID-19 Clin Com Discharge Plan Discharge Clinical Impression: Abdominal pain Patient Disposition: Home, Self-Care Instructions: Abdominal Pain (ED) Additional Instructions: Please call your primary care provider for follow-up appointment on today's emergency room visit. Please return to emergency room if you have worsening abdominal pain, fevers, urine able to eat or drink, your intractable vomiting or nausea, or for any other new or concerning symptoms. Do not take diclofenac while taking ketorolac Prescriptions: New ketorolac 10 mg tablet 10 mg PO TID 3 Days Qty: 9 0RF No Action bupropion HCl [Wellbutrin XL] 150 mg tablet extended release 24 hr 150 mg PO QAM 0RF tramadol 50 mg tablet 50 mg PO DAILY 0RF baclofen 5 mg tablet 5 mg PO DAILY 0RF Mirena 20 mcg/24 hours (6 yrs) 52 mg intrauterine device intrauterine 0RF diclofenac sodium 50 mg tablet,delayed release (DR/EC) 50 mg PO BID 0RF acetaminophen [Mapap Arthritis Pain] 650 mg tablet extended release 0 mg PO 0RF baclofen 10 mg tablet 10 mg PO TID 0RF cholecalciferol (vitamin D3) 50 mcg (2,000 unit) capsule 50 mcg PO DAILY 0RF simethicone 125 mg capsule 0 mg PO 0RF pantoprazole 20 mg tablet,delayed release (DR/EC) 20 mg PO DAILY 0RF buspirone 10 mg tablet 10 mg PO BID 0RF Interventions: ED Discharge Assessment Last Done: 05/03/21 13:54 Discharge Date/Time: 05/03/21 13:55
[2021-05-03] MEDS: Ketorolac Tromethamine 15 MG/ML VIAL IVPUSH (13:53)
== END 2021-05-03 13:55 | disposition home or self-care (01) ==
PROVIDERS: Physician Assistant; Emergency Provider Emergency Medicine; PCP Family Medicine
DX: R10.12 Left upper quadrant pain (principal); R60.0 Localized edema; Z20.822 Contact with and (suspected) exposure to COVID-19; Z79.899 Other long term (current) drug therapy
CPT/HCPCS: 36415; 74177; 76830; 76856; 80048; 81001; 81025; 83690; 84702; 85027; 87086; 87635; 93975; 96361; 96374; 96375; 96376; 99284; 99285; J1885; J2270; J2405

== ENCOUNTER 2021-06-07 08:07 | Emergency (ER) | payer MEDICAID, SELFPAY ==
[2021-06-07 08:10] VITALS: BP 118/68; PULSE 91; RESP 17; TEMP 36.6; O2SAT 98; BMI 28.9
[2021-06-07] MEDS: diphenhydrAMINE HCL 25 MG TABLET 50 MG PO (09:15)
[2021-06-07] MEDS: predniSONE 20 MG TABLET 40 MG PO (09:15)
[2021-06-07] MEDS: Docusate Sodium 100 MG/10 ML LIQUID PO (09:16)
--- NOTE | 2021-06-07 09:29 | ED.GENADULT ---
HPI - General Adult General Chief complaint: General Medical Stated complaint: facial swelling Time Seen by Provider: 06/07/21 08:55 Source: patient Mode of arrival: ambulatory Limitations: no limitations History of Present Illness HPI narrative: 31 y/o female presents to the ER c/o right ear being clogged for the last 3 days as well as new onset of upper lip and left sided facial swelling that she woke up with yesterday. She denies any tongue swelling, difficulty swallowing or wheezing. No history of any allergies and she denies any new foods of medications. She has been using topical drops in her ear to help with the wax with no improvement. Her hearing is muffled. No runny nose, congestion, fever, chills, cough or other URI symptoms. MD complaint: facial swelling and right ear clogged Onset (ago): day(s) Location: face and mouth Radiation: non-radiation Severity: mild Relieving factors: none Exacerbating factors: none Associated symptoms: denies other symptoms Treatments prior to arrival: none Related Data Home Medications Medication Instructions Recorded Confirmed baclofen 5 mg tablet 5 mg PO DAILY 06/09/20 bupropion HCl 150 mg 24 hr tablet, 150 mg PO QAM 06/09/20 06/09/20 extended release (Wellbutrin XL) levonorgestrel 20 mcg/24 hours (7 INTRAUTERINE 06/09/20 06/09/20 yrs) 52 mg intrauterine device (Mirena) tramadol 50 mg tablet 50 mg PO DAILY 06/09/20 06/09/20 acetaminophen 650 mg 0 mg PO 04/02/21 tablet,extended release (Mapap Arthritis Pain) baclofen 10 mg tablet 10 mg PO TID 04/02/21 buspirone 10 mg tablet 10 mg PO BID 04/02/21 cholecalciferol (vitamin D3) 50 50 mcg PO DAILY 04/02/21 mcg (2,000 unit) capsule diclofenac sodium 50 mg 50 mg PO BID 04/02/21 tablet,delayed release pantoprazole 20 mg tablet,delayed 20 mg PO DAILY 04/02/21 release simethicone 125 mg capsule 0 mg PO 04/02/21 Previous Rx's Medication Instructions Recorded ketorolac 10 mg tablet 10 mg PO TID 3 Days #9 tab 05/03/21 prednisone 20 mg tablet 40 mg PO DAILY #10 tab 06/07/21 Allergies Allergy/AdvReac Type Severity Reaction Status Date / Time No Known Allergies Allergy Verified 04/02/21 10:53 Review of Systems Review of Systems: Constitutional: No Fever, No Chills ENT/Mouth: No sore throat, No Rhinorrhea, No Swallowing Difficulty, +decreased hearing, No otalgia Eyes: No Eye Pain, No Swelling, No Redness Cardiovascular: No Chest Pain, No SOB Respiratory: No Cough, No Sputum, No Wheezing, No dyspnea Gastrointestinal: No Nausea, No Vomiting Genitourinary: No Dysuria, No Urinary Frequency, No Hematuria Musculoskeletal: No joint pain, No Myalgias Skin: No Skin Lesions, No rash Neuro: No Weakness, No Numbness, No Dizziness, +Headache Psych: No Anxiety/Panic, No Depression Heme/Lymph: No Bruising, No Lymphadenopathy PMFSH Past Medical History Medical History Anxiety Asthma Back pain Depression Surgical History Hx of appendectomy Family History Family History Paternal Grandfather Lung cancer Mother Depressed Anxiety Bipolar 1 disorder, depressed Social History Social History Alcohol intake: current Alcohol intake frequency: holidays/special occasions only Patient Tobacco Use Status: Never used Tobacco Advance Directives: No Advance Directives Information Provided: No Patient : No Gender identity: Female Physical Exam ED Vital Signs: Vital Signs - 24 hr 06/07/21 08:10 Temperature 98 F Pulse Rate 91 Respiratory Rate 17 Blood Pressure 118/68 Pulse Oximetry 98 BMI result Body Mass Index 28.9 Appearance: Alert. Oriented X3. No acute distress. Eyes: Pupils equal, round and reactive to light. ENT: Pharynx normal. Upper lip with mild swelling centrally, normal lower lip. adjacent to the nose on the left there is trace swelling without erythema or warmth. normal oropharynx and tongue. uvula midline, airway patent. right TM obscured with cerumen. Normal left EAC and TM. Neck: Normal inspection. Neck supple. No LAD CVS: Normal heart rate and rhythm. Pulses normal. Respiratory: No respiratory distress. Breath sounds normal. Skin: Skin warm and dry. Normal skin color. Normal skin turgor. No rashes. Extremities: No lower extremity edema. Neuro: Oriented X 3. No motor deficit. No sensory deficit. Course Course Course Narrative: 31 y/o female presenting to the ER with right ear cerumen impaction as well as upper lip and left sided facial swelling. The swelling is mild and there does not appear to be any airway involvement. Symptoms have been going on for over 24 hours. Unknown trigger. Will give a dose of Benadryl and prednisone now and reassess. Liquid Colace placed in the right ear for cerumenolytic affects and will irrigate. Reevaluation(s) Reevaluation #1: Able to completely remove the cerumen in the right ear canal with irrigation and Colace drops. Hearing is restored. Facial swelling continues to be mild and does not involve the airway. Unclear etiology. Will prescribe a few days worth of prednisone for swelling. She was counseled and encouraged to take Benadryl until symptoms resolve. She would will turn to the ER if her symptoms were to worsen or if she were to develop difficulty swallowing or breathing. She is stable for discharge home. Procedures Ear Wax Removal Right Ear: Cerumenolytic Used: Colace Results: Re-examined: cerumen removed completely TM Examination: TM(s) intact, normal appearance Ear Canal Exam: atraumatic Patient Tolerated Procedure: well and no complications Complications: no problems Technique: ear canal irrigated Discharge Plan Discharge Clinical Impression: Cerumen impaction, Facial swelling Patient Disposition: Home, Self-Care Instructions: Carbamide Peroxide (Into the ear) Additional Instructions: Use Debrox drops in your ears as needed for ear wax - found over the counter. Avoid Q-tips - these tend to push the wax further in. For your lip and facial swelling recommend taking Benadryl 50 mg eveyr 6-8 hours until resolved. Take the prescribed prednisone as well to help with the swelling. If you develop new or worsening symptoms call 911 or come back to the ER for further evaluation. Prescriptions: New prednisone 20 mg tablet 40 mg PO DAILY Qty: 10 0RF No Action ketorolac 10 mg tablet 10 mg PO TID 3 Days Qty: 9 0RF bupropion HCl [Wellbutrin XL] 150 mg tablet extended release 24 hr 150 mg PO QAM 0RF tramadol 50 mg tablet 50 mg PO DAILY 0RF baclofen 5 mg tablet 5 mg PO DAILY 0RF Mirena 20 mcg/24 hours (6 yrs) 52 mg intrauterine device intrauterine 0RF diclofenac sodium 50 mg tablet,delayed release (DR/EC) 50 mg PO BID 0RF acetaminophen [Mapap Arthritis Pain] 650 mg tablet extended release 0 mg PO 0RF baclofen 10 mg tablet 10 mg PO TID 0RF cholecalciferol (vitamin D3) 50 mcg (2,000 unit) capsule 50 mcg PO DAILY 0RF simethicone 125 mg capsule 0 mg PO 0RF pantoprazole 20 mg tablet,delayed release (DR/EC) 20 mg PO DAILY 0RF buspirone 10 mg tablet 10 mg PO BID 0RF
== END 2021-06-07 10:04 | disposition home or self-care (01) ==
PROVIDERS: Emergency Provider Emergency Medicine; PCP Family Medicine
DX: R22.0 Localized swelling, mass and lump, head (principal); H61.21 Impacted cerumen, right ear
CPT/HCPCS: 69209; 99283; Q0163

== ENCOUNTER 2021-06-12 09:47 | Outpatient (REF) | payer MEDICAID, SELFPAY ==
[2021-06-13 08:42] LABS: BV Int Neg Control Negative (Negative); BV Int Pos Control Positive (Positive)
[2021-06-13 09:25] LABS: CT PCR NOT DETECTED (Not Detect.); NG PCR NOT DETECTED (Not Detect.)
[2021-06-15 18:17] LABS: HPV mRNA E6/E7 rflx Not Detected (Not Detected)
== END 2021-06-12 09:48 | disposition home or self-care (01) ==
LOC: HO.LAB 09:47
PROVIDERS: Visit Provider Advanced Practice Midwife
DX: Z01.419 Encounter for gynecological examination (general) (routine) without abnormal findings (principal); Z11.51 Encounter for screening for human papillomavirus (HPV); Z20.2 Contact with and (suspected) exposure to infections with a predominantly sexual mode of transmission; Z97.5 Presence of (intrauterine) contraceptive device; Z87.42 Personal history of other diseases of the female genital tract
CPT/HCPCS: 87480; 87491; 87510; 87591; 87624; 87660; 88142

== ENCOUNTER → 2021-10-12 11:42 | Outpatient (BNVA) | payer MEDICAID, SELFPAY | PROVIDERS: PCP Family Medicine; Visit Provider Advanced Practice Midwife | DX: Z30.430 Encounter for insertion of intrauterine contraceptive device (principal); Z30.432 Encounter for removal of intrauterine contraceptive device; Z87.42 Personal history of other diseases of the female genital tract; Z32.02 Encounter for pregnancy test, result negative | CPT/HCPCS: 58300; 58301; 81025; 99212; J7298 ==

== ENCOUNTER → 2022-01-29 10:30 | Outpatient (BNVA) | payer MEDICAID, SELFPAY | PROVIDERS: PCP Family Medicine; Visit Provider Advanced Practice Midwife | DX: Z30.431 Encounter for routine checking of intrauterine contraceptive device (principal); Z87.42 Personal history of other diseases of the female genital tract | CPT/HCPCS: 99212 ==

== ENCOUNTER 2022-10-17 06:35 | Emergency (ER) | payer MEDICAID, SELFPAY ==
[2022-10-17 06:39] VITALS: BP 129/77; PULSE 64; RESP 18; TEMP 36.6; O2SAT 99; BMI 28.3
--- NOTE | 2022-10-17 07:13 | ED.WOUNDLAC ---
HPI - Wound/Laceration General Chief Complaint: Wound/Laceration Stated Complaint: lac on finger Time Seen by Provider: 10/17/22 06:59 Source: patient Mode of arrival: ambulatory Limitations: no limitations History of Present Illness HPI narrative: 32-year-old female who presents emergency department for evaluation of laceration to her left middle finger. The patient states she was cutting meat last night at around 19:00 hours when she accidentally cut her middle finger. She states that initially the wound was bleeding, she wash the wound out and applied pressure which stop the bleeding. This morning, she had increased pain and swelling around the area of the wound and she was concerned about the change overnight therefore she came to emergency department for evaluation. She denied fever, chills, fatigue, drainage of pus. She states that it is painful to move the finger. Patient does not know any last tetanus shot was given. Related Data Home Medications Medication Instructions Recorded Confirmed bupropion HCl 150 mg 24 hr tablet, 150 mg PO QAM 06/09/20 01/29/22 extended release (Wellbutrin XL) levonorgestrel 21 mcg/24 hours (8 intrauterine 06/09/20 01/29/22 yrs) 52 mg intrauterine device (Mirena) tramadol 50 mg tablet 50 mg PO DAILY 06/09/20 01/29/22 acetaminophen 650 mg 0 mg PO 04/02/21 01/29/22 tablet,extended release (Mapap Arthritis Pain) baclofen 10 mg tablet 10 mg PO TID 04/02/21 01/29/22 buspirone 10 mg tablet 10 mg PO BID 04/02/21 01/29/22 cholecalciferol (vitamin D3) 50 50 mcg PO DAILY 04/02/21 01/29/22 mcg (2,000 unit) capsule diclofenac potassium 50 mg tablet 50 mg PO DAILY 10/12/21 01/29/22 Allergies Allergy/AdvReac Type Severity Reaction Status Date / Time No Known Allergies Allergy Verified 10/17/22 06:42 Review of Systems Review of Systems: Yes all other systems are reviewed and are negative PMFSH Past Medical History Medical History Anxiety Asthma Back pain Depression Surgical History Hx of appendectomy Family History Family History Paternal Grandfather Lung cancer Mother Depressed Anxiety Bipolar 1 disorder, depressed Social History Social History Alcohol intake: current Alcohol intake frequency: holidays/special occasions only Patient Tobacco Use Status: Never used Tobacco Advance Directives: No Gender identity: Female Physical Exam Vital Signs: Vital Signs: Last Vital Signs Temp 97.9 F 10/17/22 06:39 Pulse 64 10/17/22 06:39 Resp 18 10/17/22 06:39 BP 129/77 10/17/22 06:39 Pulse Ox 99 10/17/22 06:39 O2 Del Method Room Air 10/17/22 06:39 BMI result Body Mass Index 28.3 Vital signs were normal. General: Awake, alert, female patient, very pleasant and cooperative, answers all questions appropriately Extremity examination: The patient has a full skin thickness irregular laceration to radial aspect of middle phalanx. The wound is not actively bleeding. The wound is approximately 2.5 cm in length. There is no drainage of pus, erythema or increased warmth around the wound. Patient has full range of motion of the finger without any limitation, she has normal capillary refill and normal light touch sensation. Medical Decision Making Medical Decision Making MDM Narrative: 32-year-old female who presents emergency department for evaluation of laceration to the left middle finger that occurred last night at 17:00 hours when she was cutting the accidentally cut her finger. Patient did irrigate the wound at home with water and control the bleeding with pressure. She was concerned that the pain was worse this morning she is having difficulty moving her finger therefore she came to the emergency department for evaluation. She did not take any pain medications. Patient's exam revealed a full skin thickness laceration to radial aspect middle phalanx of the left middle finger. The wound does not appear to be infected, she is not actively bleeding and she is neurovascularly intact. The wound was covered with bacitracin and a nonstick dressing. Patient was advised to use bacitracin twice a day and keep the wound covered for several days to help stop the bleeding. She was given ibuprofen 400 mg orally and advised to take ibuprofen and Tylenol for pain at home. She did not know when her last tetanus shot was given therefore she was given a Tdap vaccination here in the emergency department. She was given printed and verbal instructions and discharged home Differential Diagnosis Differential diagnosis includes was not limited to skin laceration, tendon injury, wound infection, tetanus exposure Discharge Plan Discharge Clinical Impression: Laceration of middle finger Qualifiers: Encounter type: initial encounter Damage to nail status: without damage Foreign body presence: without foreign body Laterality: left Qualified Code(s): S61.213A - Laceration without foreign body of left middle finger without damage to nail, initial encounter Patient Disposition: Home, Self-Care Additional Instructions: Apply bacitracin twice a day for 1 week to the cut on your left middle finger to help prevent infection. Keep the finger bandaged for 2-3 days and this all help stop the bleeding. Watch for signs of infection which would include increased redness, red streaks going away from the wound, drainage of pus, increased pain. Take ibuprofen 200 mg pills, 2 pills every 6 hours as needed for pain or fever. Take Tylenol (acetaminophen) 500 mg pills, 2 pills every 6 hours as needed for pain or fever. You received a tetanus, diphtheria and pertussis vaccination (Tdap). This vaccination is good for 5 years and between 5 in 10 years you may need a booster shot for any contaminated wound or laceration. Follow-up with your doctor in 2 days. Please return to the emergency department if your symptoms get worse or if you develop any symptoms that are concerning to you. Prescriptions: No Action bupropion HCl [Wellbutrin XL] 150 mg tablet extended release 24 hr 150 mg PO QAM tramadol 50 mg tablet 50 mg PO DAILY Mirena 20 mcg/24 hours (6 yrs) 52 mg intrauterine device intrauterine acetaminophen [Mapap Arthritis Pain] 650 mg tablet extended release 0 mg PO baclofen 10 mg tablet 10 mg PO TID cholecalciferol (vitamin D3) 50 mcg (2,000 unit) capsule 50 mcg PO DAILY buspirone 10 mg tablet 10 mg PO BID diclofenac potassium 50 mg tablet 50 mg PO DAILY
[2022-10-17 07:23] VITALS: BP 116/67; PULSE 58; RESP 14; O2SAT 98
[2022-10-17] MEDS: Ibuprofen 400 MG TABLET PO (07:37)
[2022-10-17] MEDS: Bacitracin Oint 0.9 GM PACKET 1 APPL TOPICAL (07:38)
[2022-10-17] MEDS: Diphth,Pertus(ACell),Tet Adult 0.5 ML SYRINGE IM (07:38)
== END 2022-10-17 08:01 | disposition home or self-care (01) ==
PROVIDERS: Emergency Provider Emergency Medicine Emergency Medical Services
DX: S61.213A Laceration without foreign body of left middle finger without damage to nail, initial encounter (principal); S60.413A Abrasion of left middle finger, initial encounter; M79.642 Pain in left hand; W45.8XXA Other foreign body or object entering through skin, initial encounter; Y93.9 Activity, unspecified; Y92.9 Unspecified place or not applicable; Y99.9 Unspecified external cause status; Z79.899 Other long term (current) drug therapy; Z23 Encounter for immunization
CPT/HCPCS: 90471; 90715; 99284

== ENCOUNTER 2022-12-27 15:04 | Outpatient (REF) | payer MEDICAID, SELFPAY | END 2022-12-27 15:05 | disposition home or self-care (01) | LOC: HO.HHCX 15:04 | PROVIDERS: Visit Provider Family Medicine | DX: N39.0 Urinary tract infection, site not specified (principal) | CPT/HCPCS: 72100; 87086 ==

== ENCOUNTER 2022-12-27 18:28 | Outpatient (REF) | payer MEDICAID, SELFPAY | END 2022-12-27 18:29 | disposition home or self-care (01) | LOC: HO.LNP 18:28 | PROVIDERS: Visit Provider Family Medicine | DX: N39.0 Urinary tract infection, site not specified (principal) | CPT/HCPCS: 87086 ==

== ENCOUNTER 2023-01-03 11:25 | Outpatient (REF) | payer MEDICAID, SELFPAY ==
[2023-01-03 13:14] LABS: MANUAL DIFF FLAG NO
[2023-01-03 13:22] LABS: Basophils Percent Auto 0.7 % (0-2); Eosinophils Absolute Auto 0.1 X10*3/uL (0.0-0.4); Eosinophils Percent Auto 1.1 % (0-4); Hematocrit 39.7 % (37.0-47.0); Hemoglobin 13.4 g/dl (12.0-16.0); Imm Gran Abs Auto 0.01 X10*3/uL (0.00-0.03); Imm Gran Pct Auto 0.2 % (0.0-0.4); Lymphocytes Percent Auto 37.3 % (20-40); Mean Corpuscular HGB Conc 33.8 g/dl (31.0-35.0); Mean Corpuscular Hemoglobin 29.6 pg (27.0-33.0); Mean Corpuscular Volume 87.6 fL (80.0-98.0); Mean Platelet Volume 10.1 fL (9.4-12.3); Monocytes Absolute Auto 0.3 X10*3/uL (0.1-1.2); Monocytes Percent Auto 6.3 % (2-11); Neutrophils Percent Auto 54.4 % (45-73); Platelet Count 273 X10*3/uL (160-400); Red Blood Count 4.53 X10*6/uL (4.20-5.50); Red Cell Distribution Width 11.9 % (11.0-16.0); White Blood Count 5.4 X10*3/uL (4.8-10.8)
[2023-01-03 13:30] LABS: Estimated Average Glucose 94 mg/dL; Hemoglobin A1c % 4.9 % (<6.0)
[2023-01-03 14:23] LABS: Alanine Aminotransferase 12 U/L (0-31); Albumin Level 4.4 g/dL (3.5-5.0); Alkaline Phosphatase 47 U/L (39-117); Anion Gap 12 (12-20); Aspartate Amino Transferase 17 U/L (5-31); Bilirubin Direct 0.2 mg/dL (0.0-0.5); Bilirubin Total 0.7 mg/dL (0.0-1.0); Blood Urea Nitrogen 13 mg/dL (9-16); Calcium 8.9 mg/dL (8.4-10.2); Carbon Dioxide 24 mmol/L (22-29); Chloride 106 mmol/L (96-108); Cholesterol 147 mg/dL (<200); Estimated Glomerular Filt Rate > 60; Glucose Random 83 mg/dL (60-115); HDL Cholesterol 47 mg/dL (>40); LDL Cholesterol Calculated 83 mg/dL (<100); Potassium 3.9 mmol/L (3.3-5.1); Sodium 138 mmol/L (135-145); Total Protein 7.3 g/dL (6.5-8.0); Triglycerides 85 mg/dL (<150)
[2023-01-03 14:41] LABS: Free T4 (Free Thyroxine) 1.07 ng/dL (0.71-1.85); Thyroid Stimulating Hormone 2.33 uIU/mL (0.32-4.0); Vitamin D 25-OH Total 25.3 ng/mL (>30)
[2023-01-03 15:33] LABS: CT PCR NOT DETECTED (Not Detect.); NG PCR NOT DETECTED (Not Detect.)
[2023-01-06 07:52] LABS: Syphilis Screen Nonreactive (Nonreactive)
[2023-01-06 08:37] LABS: HIV AB/AG Nonreactive (Nonreactive); HIV Num 1 0.08 S/CO (0.00-0.99); ~HepC Num1 0.13 S/CO (0.00-0.79); ~Hepatitis C Antibody Nonreactive (Nonreactive)
== END 2023-01-03 11:26 | disposition home or self-care (01) ==
LOC: HO.HHCL 11:25
PROVIDERS: Visit Provider Family Medicine
DX: Z00.00 Encounter for general adult medical examination without abnormal findings (principal); Z11.4 Encounter for screening for human immunodeficiency virus [HIV]; Z11.3 Encounter for screening for infections with a predominantly sexual mode of transmission
CPT/HCPCS: 0353U; 80048; 80061; 80076; 82306; 83036; 84439; 84443; 85025; 86780; 86803; 87389

== ENCOUNTER 2023-01-24 12:53 | Outpatient (REF) | payer MEDICAID, SELFPAY ==
[2023-01-25 13:12] LABS: CT PCR NOT DETECTED (Not Detect.); NG PCR NOT DETECTED (Not Detect.)
[2023-01-25 13:32] LABS: BV Int Neg Control Negative (Negative); BV Int Pos Control Positive (Positive)
== END 2023-01-24 12:54 | disposition home or self-care (01) ==
LOC: HO.LNP 12:53
PROVIDERS: Visit Provider Advanced Practice Midwife
DX: Z01.419 Encounter for gynecological examination (general) (routine) without abnormal findings (principal); Z97.5 Presence of (intrauterine) contraceptive device; Z87.42 Personal history of other diseases of the female genital tract; Z20.2 Contact with and (suspected) exposure to infections with a predominantly sexual mode of transmission; Z79.899 Other long term (current) drug therapy
CPT/HCPCS: 0353U; 87480; 87510; 87660; 99395

== ENCOUNTER 2023-01-24 12:53 | Outpatient (AMB) | payer MEDICAID, SELFPAY ==
[2023-01-24 12:55] VITALS: BP 132/70; BMI 30.5
--- NOTE | 2023-01-24 12:55 | MHC.OFFVIS ---
Intake Vital Signs 01/24/23 12:55 Height 5 ft 3 in Weight 172 lb BMI 30.5 BP 132/70 Blood Pressure Location Rt brachial Position Sitting Intake Visit Reasons: Annual Allergies No Known Allergies Allergy (Verified 01/24/23 12:55) Medication List - Last Reconciled 01/24/23 by Rosi Crowder CNM acetaminophen ER (Mapap Arthritis Pain) 0 mg PO baclofen 10 mg PO TID bupropion HCl (Wellbutrin XL) 150 mg PO QAM buspirone 10 mg PO BID cholecalciferol (vitamin D3) 50 mcg PO DAILY diclofenac potassium 50 mg PO DAILY levonorgestrel (Mirena) intrauterine tramadol 50 mg PO DAILY Is last menstrual period known: No HPI Annual HPI Details Patient is here for vp design annual exam visit she has the Mirena IU S and this is her 2nd 1 her 1st was placed after the of her child 6 years ago and this 1 was placed last year. She has a history of AMAURY 3 and a LEEP in 2014 but her last 2 Paps were normal in 2020 in 2021. She is having no issues at all with the Mirena and feels it is doing very well for her. She is sexually active. She somewhat recently went to the [facility] to her PCC because she was having urgency and frequency of urination and she was treated with a an antibiotic for 3 days which she does not know the name of but it worked and the urine cultured did show something. She also recently got tested for STIs with blood work per her PCC. She is not having any vaginal itching or discharge. 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 [facility] Medical History Asthma Back pain Depression Anxiety Surgical History Hx of appendectomy Family History Paternal Grandfather Lung cancer Mother Depressed Anxiety Bipolar 1 disorder, depressed Social History Alcohol intake: never Patient Tobacco Use Status: Never used Tobacco Gender identity: Female Female Reproductive History Menstrual Age of Menarche: 12 control method: progestin IUCD Total pregnancies: 1 Full term: 1 Number of Living Children: 1 Date of last pap smear: 06/13/21 History of abnormal pap smear: Yes History of STI: No Physical Exam Vital Signs: Last Vital Signs BP 132/70 01/24/23 12:55 BMI result Body Mass Index 30.5 Const General: healthy appearing, comfortable, no acute distress, well developed and alert Nutritional Appearance: average body habitus Orientation/consciousness: patient oriented x3 Limitations: no limitations HEENT Head: Yes normocephalic Neck Neck: Yes normal visual inspection Chest Chest palpation & inspection: normal inspection of the chest Breast/axilla inspection: normal inspection of the breasts and normal inspection of the axillae Breast/axilla palpation: normal palpation of the breasts and normal palpation of the axillae Resp Effort & Inspection: normal respiratory effort GI Inspection: Yes normal to inspection, No Abdominal wall edema and No distended Palpation (GI): Soft to palpation and nontender Other: External exam within normal limits vagina pink and moist there is a yellowish bubbly discharge. Cervix is multiparous pink smooth with Mirena strings easily visible. Uterus is small midposition mobile nontender good tone with Kegel adnexa nontender not enlarged. General: Yes bladder normal to palpation External Female Exam: normal external appearance and normal appearance of the urethra Speculum Exam - Vagina: normal appearance of the vagina, normal palpation and normal vaginal discharge Speculum Exam - Cervix: normal appearance of the cervix, normal palpation and nontender Bimanual exam- vagina & uterus: normal bimanual exam, normal palpation, uterine size normal, bladder normal to palpation, consistency normal, normal palpation, uterine mobility normal, uterine shape normal, No Cervical tenderness present, non-tender and no cervical motion tenderness Bimanual Exam- Adnexa, other: normal adnexae, no masses, normal and No adnexal tenderness Neuro General: patient oriented x3 Assessment & Plan Assessment & Plan (1) Encounter for routine checking of intrauterine contraceptive device (IUD): Code(s): Z30.431 - Encounter for routine checking of intrauterine contraceptive device (2) Presence of 52 mg levonorgestrel-releasing intrauterine device (IUD): Code(s): Z97.5 - Presence of (intrauterine) contraceptive device (3) Hx of abnormal cervical Pap smear: Comment: Hx of AMAURY 3 and LEEP 2014, pap of 06/11= neg, pap 06/12/21= neg w neg hpv. Code(s): Z87.42 - Personal history of other diseases of the female genital tract (4) Well woman exam with routine gynecological exam: Code(s): Z01.419 - Encounter for gynecological examination (general) (routine) without abnormal findings (5) Potential exposure to STD: Code(s): Z20.2 - Contact with and (suspected) exposure to infections with a predominantly sexual mode of transmission Plan -----Discussed in this visit the following: healthy balanced diet, regular and consistent exercise, getting recommended health screens, doing the best she can for her particular health concerns, kegel exercises, pap smear screening and followup recommendations, mammography screening and SBE, normal changes in cycles in her life stage--- -reviewed her history of AMAURY 3 and the LEEP and the negative Pap smears in 2020 in 2021 so she does not need a Pap smear this year. . Reviewed the Mirena and its side effects and how she is feeling about it which is good. Some time was spent with the patient trying to review in her phone what medication she had been given at the [facility] and we were not able to find it but it develops that it was for UTI and it was 3 days 2 pills a day so it may very well have been Bactrim and it worked. She has no current symptoms the vaginal discharge is somewhat yellow in bubbly we will await the cultures and I told her that we would call her if there was anything positive that needed treatment it but it would be next week . Reviewed self-care back care and stretches and exercises to maintain a healthy back. Discussed that she could request of physical therapy referral if she felt she needed it but she does not think so we will see her in 1 year Orders: Orders Bacterial Vaginosis Panel Today Z01.419 - Encounter for gynecological examination (general) (routine) without abnormal findings CT NG by PCR Today Z01.419 - Encounter for gynecological examination (general) (routine) without abnormal findings Coding Level of Care Code Est Pt Prev Care [id number]) Diagnoses Encounter for routine checking of intrauterine contraceptive device (IUD) Z30.431 Presence of 52 mg levonorgestrel-releasing intrauterine device (IUD) Z97.5 Hx of abnormal cervical Pap smear Z87.42 Well woman exam with routine gynecological exam Z01.419 Potential exposure to STD Z20.2
== END 2023-01-24 13:36 | disposition home or self-care (01) ==
PROVIDERS: Visit Provider Advanced Practice Midwife
DX: Z30.431 Encounter for routine checking of intrauterine contraceptive device (principal); Z97.5 Presence of (intrauterine) contraceptive device; Z87.42 Personal history of other diseases of the female genital tract; Z01.419 Encounter for gynecological examination (general) (routine) without abnormal findings; Z20.2 Contact with and (suspected) exposure to infections with a predominantly sexual mode of transmission
CPT/HCPCS: 99395

== ENCOUNTER 2023-03-01 08:03 | Emergency (ER) | payer MEDICAID, SELFPAY ==
--- NOTE | ~2023-03-01 | XR_ITS ---
EXAMINATION: XR CHEST CLINICAL INFORMATION: Shortness of breath. Asthma. COMPARISON: Previous chest x-ray most recent March 2014 TECHNIQUE: Frontal view of the chest was obtained. FINDINGS: The cardiac silhouette does not appear enlarged. Hilar and mediastinal contours are unremarkable. There is increased attenuation in the right cardiophrenic angle region on the PA and lateral likely secondary to pectus deformity of the chest. The lungs are otherwise clear. No pleural effusion or pneumothorax. No acute Bone abnormality. XR/XR chest 1V IMPRESSION: No evidence for acute disease in the chest.
[2023-03-01 08:06] VITALS: BP 113/69; PULSE 85; RESP 18; TEMP 36.2; O2SAT 100; BMI 28.2
[2023-03-01 08:41] LABS: COVID-19 Test Negative (Negative); IDNOW Serial# 08D9AD1C
[2023-03-01 08:45] LABS: IDNOW Serial# BCCEAD1C; Influenza A Negative (Negative); Influenza B2 Negative (Negative)
--- NOTE | 2023-03-01 09:25 | ED.ASTHMA ---
HPI - Asthma General Chief Complaint: Asthma Stated Complaint: asthma diff breathing Time Seen by Provider: 03/01/23 09:25 Source: patient Mode of arrival: ambulatory Limitations: no limitations History of Present Illness HPI Narrative: Patient is a 33 year old assigned female at with a history of asthma, anxiety, and depression presenting to the emergency department today with a cough and increased wheezing. Patient states that she is out of all of her asthma medications and has been having a cough for 2.5 weeks. Patient denies any dizziness, lightheadedness, abdominal pain, nausea, vomiting, fever, chills, blurry vision, double vision, loss of vision, chest pain, back pain, night sweats, pain with urination, increased urinary frequency, increased urinary urgency, blood in her urine or stool, syncope or a near syncopal episode, recent trauma or falls, bowel incontinence, bladder incontinence, bowel retention, bladder retention, or any other complaints at this time. Onset (ago): week(s) (2.5) Severity: mild Associated symptoms: none Treatments Prior to Arrival: inhaled bronchodilator Related Data Current Asthma Therapy: inhaled bronchodilator Home Medications Medication Instructions Recorded Confirmed bupropion HCl 150 mg 24 hr tablet, 150 mg PO QAM 06/09/20 01/24/23 extended release (Wellbutrin XL) levonorgestrel 21 mcg/24 hours (8 intrauterine 06/09/20 01/24/23 yrs) 52 mg intrauterine device (Mirena) tramadol 50 mg tablet 50 mg PO DAILY 06/09/20 01/24/23 acetaminophen 650 mg 0 mg PO 04/02/21 01/24/23 tablet,extended release (Mapap Arthritis Pain) baclofen 10 mg tablet 10 mg PO TID 04/02/21 01/24/23 buspirone 10 mg tablet 10 mg PO BID 04/02/21 01/24/23 cholecalciferol (vitamin D3) 50 50 mcg PO DAILY 04/02/21 01/24/23 mcg (2,000 unit) capsule diclofenac potassium 50 mg tablet 50 mg PO DAILY 10/12/21 01/24/23 Previous Rx's Medication Instructions Recorded albuterol sulfate 2.5 mg/0.5 mL 2.5 mg (0.5 mL) inhalation Q20M 03/01/23 solution for nebulization #30 ea albuterol sulfate 90 mcg/actuation 1 inh inhalation QID #8.5 grams 03/01/23 aerosol inhaler prednisone 20 mg tablet 20 mg PO DAILY 7 days #7 tabs 03/01/23 Allergies Allergy/AdvReac Type Severity Reaction Status Date / Time No Known Allergies Allergy Verified 01/24/23 12:55 Review of Systems Constitutional: Constitutional: Reports no additional constitutional complaints, Denies chills, Denies fever(s) and Denies night sweats Eyes: Eyes: Reports no additional eye complaints, Denies blurry vision, Denies change in vision, Denies diplopia, Denies eye discharge, Denies loss of vision and Denies eye pain ENT: Denies dizziness Cardiovascular: Cardiovascular: Reports no additional cardiovascular complaints, Denies chest pain, Denies lightheadedness and Denies Loss of Consciousness Respiratory: Respiratory: Reports no additional respiratory complaints and Reports cough Gastrointestinal: Gastrointestinal: Reports no additional gastrointestinal complaints, Denies abdominal pain, Denies melena, Denies hematochezia, Denies change in bowel habits and Denies change in stool character Genitourinary: Genitourinary: Denies hematuria, Denies urinary frequency, Denies dysuria, Denies urinary incontinence, Denies urinary hesitancy and Denies urinary urgency Musculoskeletal: Musculoskeletal: Reports no additional musculoskeletal complaints, Denies numbness and Denies tingling Neurologic: Denies dizziness, Denies loss of vision, Denies numbness and Denies tingling Psychiatric: Psychiatric: Reports no additional psychiatric complaints Endocrine: Endocrine: Reports no additional endocrine complaints Hematologic/Lymphatic: Hematologic/Lymphatic: Reports no additional hematologic/lymphatic complaints Allergic/Immunologic: Allergic/Immunologic: Reports no additional allergic/immunologic complaints [facility] Past Medical History Attestation statement: The following information was validated with the patient. Source: old records reviewed and nursing notes reviewed Medical History Encounter for routine checking of intrauterine contraceptive device (IUD) Encounter for removal and reinsertion of intrauterine contraceptive device (IUD) Presence of 52 mg levonorgestrel-releasing intrauterine device (IUD) Potential exposure to STD Cervical cancer screening Well woman exam with routine gynecological exam Asthma Back pain Depression Anxiety Surgical History Hx of appendectomy Family History Family History Paternal Grandfather Lung cancer Mother Depressed Anxiety Bipolar 1 disorder, depressed Social History Social History Alcohol intake: never Patient Tobacco Use Status: Never used Tobacco Advance Directives: No Advance Directives Information Provided: No Gender identity: Female Physical Exam Vital Signs: Vital Signs: Last Vital Signs Temp 97.2 F 03/01/23 08:06 Pulse 86 03/01/23 09:47 Resp 18 03/01/23 09:47 BP 113/69 03/01/23 08:06 Pulse Ox 100 03/01/23 08:06 O2 Del Method Room Air 03/01/23 08:06 BMI result Body Mass Index 28.2 Const: General: cooperative, no acute distress, alert and awake Nutritional Appearance: well nourished Orientation/consciousness: patient oriented x3 Limitations: no limitations HEENT: Head: Yes normal to inspection and Yes atraumatic Ears: hearing grossly normal bilaterally and external ears normal General nose exam: Normal external nose present, no nasal discharge noted and no epistaxis Face and sinus: Yes normal facial exam, No abrasion and No laceration Mouth: Normal oral and palatal mucosa present, no drooling and no muffled voice Eyes: General: appearance normal, both eyes and all related structures Periorbital: periorbital findings normal Eyelids: Yes eyelids normal Conjunctivae: conjunctivae normal Pupils: Equal, round and reactive pupils present EOM: EOMs intact bilaterally Neck: Neck: Yes normal visual inspection, Yes full ROM and Yes no lymphadenopathy Chest: Chest palpation & inspection: normal inspection of the chest Resp: Effort & Inspection: normal respiratory effort and able to speak in complete sentences Auscultation: wheezes throughout GI: Inspection: Yes normal to inspection Neuro: General: patient oriented x3 and moves all extremities Cranial nerves: Yes Equal, round and reactive pupils present Cognition (Neuro): normal cognition Motor exam (neuro): 5/5 motor strength present throughout Sensory Exam: Normal double simultaneous stimulation for sensation Coordination: [id number] test normal Extrem: General: Yes normal to inspection, Yes full ROM and Yes capillary refill normal Psych: Appearance: grossly normal Mental Status: mental status grossly normal Affect: normal affect Attitude: cooperative Thought process: Normal thought process present Thought content: Normal thought content present Insight: Good insight present (Psych) Medications Administered Discontinued Medications Generic Name Dose Route Start Last Admin Trade Name Damari PRN Reason Stop Dose Admin Albuterol/Ipratropium 3 ml 03/01/23 09:41 03/01/23 09:46 Albuterol/Iprat 2.5/0.5mg 3 Ml Ampul.Neb INHALE 03/01/23 09:42 3 ml ONCE ONE Administration Dexamethasone Sodium Phosphate 10 mg 03/01/23 09:26 03/01/23 09:41 Dexamethasone Sod Phosphate 10 Mg/Ml Vial PO 03/01/23 09:27 10 mg ONCE ONE Administration Medical Decision Making Medical Decision Making [facility] Narrative: Patient is a 33 year old assigned female at with a history of asthma, anxiety, and depression presenting to the emergency department today with wheezing and a cough. Patient's physical exam was as noted in the physical exam portion of this note. Patient's chest x-ray showed no acute process. Patient's COVID-19, influenza, and RSV test was negative. I explained my physical exam findings as well as all test results to the patient. I answered all questions asked by the patient. I stressed the importance of the patient taking her medication as prescribed. I stressed the importance of the patient following up with her primary care provider. I stressed the importance of the patient returning to the emergency department immediately if her symptoms were to worsen or if she were to develop any dizziness, shortness of breath, difficulty breathing, chest pain, blurry vision, loss of vision, nausea, vomiting, abdominal pain, fever, chills, back pain, or any other complaints. Patient verbalized agreement and understanding with this treatment plan and discharge. Differential Diagnosis Differential Diagnoses: The differential diagnosis associated with the presentation includes Wheezing Asthma exacerbation Asthma COVID-19 RSV Influenza Admission/Observation Consideration of admission/observation: Escalation of care including admission/observation considered Patient would have been admitted to the hospital had her work up had any findings where hospital admission was appropriate and her clinical presentation warranted hospital admission. Lab Data [facility] Lab Attestation statement: I reviewed the patient's lab results. My interpretation of these studies and their corresponding values is that they are grossly normal. Labs: Lab Results 03/01/23 Range/Units 08:20 COVID-19 (SHAAN) Negative (Negative) COVID-19 Clin Com See Note Influenza Type A (ADVID) Negative (Negative) Influenza Type B (DAVID) Negative (Negative) Influenza A & B Note See Note Independent Interpretation I performed an independent interpretation of an: Plain X-Ray Interpretation: My interpretation is in agreement with the radiologist's impression of this imaging study. EXAMINATION: XR CHEST CLINICAL INFORMATION: Shortness of breath. Asthma. COMPARISON: Previous chest x-ray most recent March 2014 TECHNIQUE: Frontal view of the chest was obtained. FINDINGS: The cardiac silhouette does not appear enlarged. Hilar and mediastinal contours are unremarkable. There is increased attenuation in the right cardiophrenic angle region on the PA and lateral likely secondary to pectus deformity of the chest. The lungs are otherwise clear. No pleural effusion or pneumothorax. No acute Bone abnormality. XR/XR chest 1V IMPRESSION: No evidence for acute disease in the chest. Dictated By: Brittney Hdz MD Signed By: Electronically signed by Brittney Hdz MD 03/01/23 0917 Radiology Impression Discussion of test interpretation with radiology: I have reviewed the radiologist's reading. Chronic Conditions Patient?s care impacted by: Other (asthma) Discharge Plan Discharge Clinical Impression: Asthma exacerbation Patient Disposition: Home, Self-Care Instructions: Asthma (DC) Additional Instructions: Follow up with your primary care provider. Return to the emergency department immediately if your symptoms worsen or if you develop any dizziness, shortness of breath, difficulty breathing, chest pain, blurry vision, loss of vision, nausea, vomiting, abdominal pain, fever, chills, back pain, or any other complaints. Prescriptions: New prednisone 20 mg tablet 20 mg PO DAILY 7 Days Qty: 7 0RF albuterol sulfate 90 mcg/actuation HFA aerosol inhaler 1 inh inhalation QID Qty: 8.5 0RF albuterol sulfate 2.5 mg/0.5 mL solution for nebulization 2.5 mg inhalation Q20M Qty: 30 0RF Rx Instructions: for up to 3 doses No Action bupropion HCl [Wellbutrin XL] 150 mg tablet extended release 24 hr 150 mg PO QAM tramadol 50 mg tablet 50 mg PO DAILY Mirena 20 mcg/24 hours (6 yrs) 52 mg intrauterine device intrauterine acetaminophen [Mapap Arthritis Pain] 650 mg tablet extended release 0 mg PO baclofen 10 mg tablet 10 mg PO TID cholecalciferol (vitamin D3) 50 mcg (2,000 unit) capsule 50 mcg PO DAILY buspirone 10 mg tablet 10 mg PO BID diclofenac potassium 50 mg tablet 50 mg PO DAILY Referrals: Kellen Mccray DO [Primary Care Provider] - Discharge Date/Time: 03/01/23 10:07 Print Language: Singaporean
[2023-03-01] MEDS: dexAMETHasone sod phosphate 10 MG/ML VIAL PO (09:41)
[2023-03-01] MEDS: Albuterol/Iprat 2.5/0.5MG 3 ML AMPUL.NEB INHALE (09:46)
[2023-03-01 09:47] VITALS: PULSE 86; RESP 18; O2SAT 100
--- NOTE | 2023-03-01 09:54 | PC.NURSE ---
RESPIRATORY AT THE BEDSIDE PT WAS MEDICATED CHARTED, NO ACUTE RESPIRATORY DIFFICULTY
--- NOTE | 2023-03-01 10:08 | PC.NURSE ---
PT WAS DISCHARGED BY PROVIDER
== END 2023-03-01 10:07 | disposition home or self-care (01) ==
PROVIDERS: Emergency Provider Emergency Medicine Emergency Medical Services; PCP Family Medicine
DX: J45.901 Unspecified asthma with (acute) exacerbation (principal); R06.02 Shortness of breath; R05.9 Cough, unspecified; Z11.52 Encounter for screening for COVID-19
CPT/HCPCS: 71045; 87502; 87635; 94640; 99283; 99284; J1100

== ENCOUNTER 2023-04-23 20:00 | Outpatient (REF) | payer MEDICAID, SELFPAY ==
--- NOTE | ~2023-04-23 | MR_ITS ---
EXAMINATION: MR LUMBAR SPINE WITHOUT CONTRAST CLINICAL INFORMATION: Back pain, sciatica COMPARISON: MRI lumbar spine 10/30/2016 TECHNIQUE: MRI of the lumbar spine was obtained using routine sequences without contrast. FINDINGS: Stable appearing grade 2-3 anterolisthesis at L5-S1 related to chronic bilateral L5 pars interarticularis defects with chronic osseous remodeling at L5-S1 and posterior wedging of the L5 vertebral body. Increased to severe L5-S1 disc height loss and increased type I Modic endplate changes at this level. There is resultant exaggeration of the lower lumbar lordosis. Stable grade 1 retrolisthesis at L4-L5 and slight retrolisthesis at L3-L4. There is disc desiccation and mild regional disc height loss at L4-L5. There is no suspicious osseous lesion. Level by level detail as follows: L1-L2: No spinal canal or neural foraminal stenosis. L2-L3: No spinal canal or neural foraminal stenosis. L3-L4: No spinal canal or neural foraminal stenosis. L4-L5: Redemonstrated annular disc bulge with paracentral annular fissure and mild bilateral facet arthrosis. No spinal canal or neural foraminal stenosis. L5-S1: Stable grade 2-3 spondylolytic anterolisthesis with uncovered disc disc, osseous ridging, and bilateral facet arthrosis. Similar mild spinal canal stenosis and severe foraminal stenosis compressing the exiting bilateral L5 nerve roots. The conus medullaris terminates at the level of L1-L2. The distal spinal cord is normal in appearance. No epidural fluid collection, hematoma, or mass. There is mild fatty atrophy of the paraspinal musculature. There is a new 4.7 cm cystic right adnexal lesion. Findings are overwhelmingly likely to represent a benign functional cyst. No follow-up imaging recommended. The abdominal aorta is of normal contour and caliber. MR/MR lumbar spine wo con IMPRESSION: Increased severe disc height loss at L5-S1 and increased type I Modic endplate changes at this level. Redemonstrated grade 2-3 spondylolytic anterolisthesis at L5-S1 related to chronic bilateral L5 pars interarticularis defects with severe bilateral neural foraminal stenosis and compression of the exiting L5 nerve roots. Stable annular disc bulge and paracentral annular fissure at L4-L5.
== END 2023-04-23 20:01 | disposition home or self-care (01) ==
LOC: HO.MRI 20:00
PROVIDERS: PCP Family Medicine; Visit Provider Family Medicine
DX: M54.50 Low back pain, unspecified (principal); G89.29 Other chronic pain
CPT/HCPCS: 72148

== ENCOUNTER 2023-11-07 16:36 | Outpatient (REF) | payer MEDICAID, SELFPAY | END 2023-11-07 16:37 | disposition home or self-care (01) | LOC: HO.HHCLNP 16:36 | PROVIDERS: Visit Provider Family Medicine | DX: N39.0 Urinary tract infection, site not specified (principal) | CPT/HCPCS: 87086; 87147 ==

== ENCOUNTER 2023-11-18 12:22 | Outpatient (REF) | payer MEDICAID, SELFPAY ==
[2023-11-18 13:29] LABS: Hematocrit 37.4 % (37.0-47.0); Hemoglobin 12.9 g/dl (12.0-16.0); Mean Corpuscular HGB Conc 34.5 g/dl (31.0-35.0); Mean Corpuscular Hemoglobin 30.1 pg (27.0-33.0); Mean Corpuscular Volume 87.4 fL (80.0-98.0); Mean Platelet Volume 10.2 fL (9.4-12.3); Platelet Count 262 X10*3/uL (160-400); Red Blood Count 4.28 X10*6/uL (4.20-5.50); Red Cell Distribution Width 11.9 % (11.0-16.0); White Blood Count 6.2 X10*3/uL (4.8-10.8)
[2023-11-18 13:42] LABS: Estimated Average Glucose 94 mg/dL; Hemoglobin A1c % 4.9 % (<6.0)
[2023-11-18 14:01] LABS: Alanine Aminotransferase 11 U/L (0-31); Albumin Level 4.3 g/dL (3.5-5.0); Alkaline Phosphatase 51 U/L (39-117); Anion Gap 8 (12-20); Aspartate Amino Transferase 17 U/L (5-31); Bilirubin Direct 0.2 mg/dL (0.0-0.5); Bilirubin Total 0.5 mg/dL (0.0-1.0); Blood Urea Nitrogen 15 mg/dL (9-16); Calcium 9.5 mg/dL (8.4-10.2); Carbon Dioxide 27 mmol/L (22-29); Chloride 105 mmol/L (96-108); Estimated Glomerular Filt Rate > 60; Glucose Random 86 mg/dL (60-115); Potassium 3.2 mmol/L (3.3-5.1); Sodium 137 mmol/L (135-145)
[2023-11-18 14:20] LABS: Thyroid Stimulating Hormone 1.73 uIU/mL (0.32-4.0); Vitamin D 25-OH Total 23.7 ng/mL (>30)
[2023-11-19 05:08] LABS: HBS Num1 110.45 mIU/mL (0-7.99); HBc Num1 0.09 S/CO (0.00-0.79); HBsAGNum1 0.29 S/CO (0.00-0.99); HIV AB/AG Nonreactive (Nonreactive); HIV Num 1 0.07 S/CO (0.00-0.99); Hepatitis B Core Antibody Nonreactive (Nonreactive); Hepatitis B Surface Antigen Negative (Negative); ~HepC Num1 0.17 S/CO (0.00-0.79); ~Hepatitis B Surface Antibody REACTIVE (Nonreactive); ~Hepatitis C Antibody Nonreactive (Nonreactive)
[2023-11-19 05:14] LABS: Hepatitis A Antibody IgG Nonreactive (Nonreactive); ~Hepatitis A Antibody IgG 0.23 S/CO (0.00-0.99)
[2023-11-20 19:43] LABS: RPR Rapid Plasma Reagin NON-REACTIVE (NON-REACTIVE)
[2023-11-21 02:39] LABS: TS Negative Control Passed; TS Panel A 0; TS Panel B 0; TS Positive Control Passed; TSpotTB Negative (Negative)
== END 2023-11-18 12:23 | disposition home or self-care (01) ==
LOC: HO.HHCL 12:22
PROVIDERS: Visit Provider Family Medicine
DX: Z00.00 Encounter for general adult medical examination without abnormal findings (principal); F33.9 Major depressive disorder, recurrent, unspecified; M54.50 Low back pain, unspecified; G89.29 Other chronic pain; K59.09 Other constipation; N39.0 Urinary tract infection, site not specified
CPT/HCPCS: 36415; 80048; 80076; 82306; 83036; 84439; 84443; 85027; 86481; 86592; 86704; 86706; 86708; 86803; 87340; 87389

== ENCOUNTER 2024-02-03 13:33 | Outpatient (REF) | payer MEDICAID, SELFPAY ==
[2024-02-04 02:56] LABS: CT PCR NOT DETECTED (Not Detect.); NG PCR NOT DETECTED (Not Detect.)
[2024-02-04 11:11] LABS: Bacterial Vaginosis PCR POSITIVE (Negative); Candida Group PCR NOT DETECTED (Not Detect); Candida glab krusei PCR NOT DETECTED (Not Detect); Trichomonas vaginalis PCR NOT DETECTED (Not Detect)
== END 2024-02-03 13:34 | disposition home or self-care (01) ==
LOC: HO.LAB 13:33
PROVIDERS: PCP Family Medicine; Visit Provider Advanced Practice Midwife
DX: Z01.419 Encounter for gynecological examination (general) (routine) without abnormal findings (principal); N89.8 Other specified noninflammatory disorders of vagina; Z20.2 Contact with and (suspected) exposure to infections with a predominantly sexual mode of transmission; Z11.3 Encounter for screening for infections with a predominantly sexual mode of transmission; Z87.42 Personal history of other diseases of the female genital tract
CPT/HCPCS: 0352U; 87491; 87591; 99395

== ENCOUNTER 2024-02-03 13:33 | Outpatient (AMB) | payer MEDICAID, SELFPAY ==
[2024-02-03 13:41] VITALS: BP 120/78; BMI 28.2
--- NOTE | 2024-02-03 13:41 | A.OFFVIS_ITS ---
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 Income Auditor Required: No Information Interpreted: clinical only Director Of Rotc: Director Of Rotc Present Allergies No Known Allergies Allergy (Verified 02/03/24 13:41) Medication List - Last Reconciled 02/03/24 by Rosi Crowder CNM acetaminophen ER (Mapap Arthritis Pain) 0 mg PO albuterol sulfate 90 mcg/actuation 1 inh inhalation QID albuterol sulfate 2.5 mg (0.5 mL) inhalation Q20M baclofen 10 mg PO TID bupropion HCl XL (Wellbutrin XL) 150 mg PO QAM buspirone 10 mg PO BID cholecalciferol (vitamin D3) 50 mcg PO DAILY diclofenac potassium 50 mg PO DAILY levonorgestrel (Mirena) intrauterine tramadol 50 mg PO DAILY Is last menstrual period known: No (IUD) HPI 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 She has the Mirena IUD this is her 2nd 1 placed a couple of years ago she is mostly not getting periods sometimes she gets a little staining that is all. She is not having any health issues she sees her primary care provider at the [facility] for primary care and she is not having any issues or concerns she is open to getting tested for STIs even with blood work but will get it some other day. She has a history of abnormal Paps and she had a LEEP in 2015 she delivered her baby in 2017. She believes she had negative Paps in the interim, the last Pap easily accessible today's from 2021 with negative HPV and she also had a negative Pap negative HPV in 2020.. [facility] Medical History (Updated 02/03/24 @ 14:40 by Rosi Crowder CNM) Well woman exam with routine gynecological exam Encounter for routine checking of intrauterine contraceptive device (IUD) Encounter for removal and reinsertion of intrauterine contraceptive device (IUD) Presence of 52 mg levonorgestrel-releasing intrauterine device (IUD) Potential exposure to STD Cervical cancer screening Asthma Back pain Depression Anxiety Surgical History Hx of appendectomy Family History Paternal Grandfather Lung cancer Mother Depressed Anxiety Bipolar 1 disorder, depressed Social History Alcohol intake: never Patient Tobacco Use Status: Never used Tobacco Gender identity: Female Female Reproductive History Menstrual Age of Menarche: 12 Duration of menses: <3 days control method: progestin IUCD Total pregnancies: 1 Full term: 1 Date of last pap smear: 06/13/21 (neg.2020,neg) History of abnormal pap smear: Yes (abn.pap AMAURY III,unsure date) Physical Exam Vital Signs: Last Vital Signs BP 120/78 02/03/24 13:41 BMI result Body Mass Index 28.2 Const General: healthy appearing, comfortable, no acute distress, well developed and alert Nutritional Appearance: average body habitus Orientation/consciousness: patient oriented x3 Limitations: no limitations HEENT Head: Yes normocephalic Neck Neck: Yes normal visual inspection Chest Chest palpation & inspection: normal inspection of the chest Breast/axilla inspection: normal inspection of the breasts and normal inspection of the axillae Breast/axilla palpation: normal palpation of the breasts and normal palpation of the axillae Resp Effort & Inspection: normal respiratory effort GI Inspection: Yes normal to inspection, No Abdominal wall edema and No distended Palpation (GI): Soft to palpation and nontender Other: Completely normal external exam vagina is pink and moist clear scant mucus at cervix with Mirena string extending about 2 cm to 3 cm from os Cervix is long close thick mobile nontender uterus is midposition mobile nontender not enlarged adnexa nontender nonenlarged good tone with Kegel. General: Yes bladder normal to palpation External Female Exam: normal external appearance and normal appearance of the urethra Speculum Exam - Vagina: normal appearance of the vagina, normal palpation and normal vaginal discharge Speculum Exam - Cervix: normal appearance of the cervix, normal palpation and nontender Bimanual exam- vagina & uterus: normal bimanual exam, normal palpation, uterine size normal, bladder normal to palpation, consistency normal, normal palpation, uterine mobility normal, uterine shape normal, No Cervical tenderness present, non-tender and no cervical motion tenderness Bimanual Exam- Adnexa, other: normal adnexae, no masses, normal and No adnexal tenderness Neuro General: patient oriented x3 Assessment & Plan Assessment & Plan (1) Hx of abnormal cervical Pap smear: Comment: Hx of AMAURY 3 and LEEP 2014, (after patient left 02/03/2024, I found negative Paps from 2015, 2016, and 2018, some of which were done via the [facility].) pap of 06/11= neg w neg hpv, pap 06/12/21= neg w neg hpv. due for pap and cotesting 2024.. Code(s): Z87.42 - Personal history of other diseases of the female genital tract Category: Medical (2) Encounter for routine checking of intrauterine contraceptive device (IUD): Comment: This is her 2nd, it was inserted 10/12/2021. 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 She has the Mirena IUD this is her 2nd 1 placed a couple of years ago she is mostly not getting periods sometimes she gets a little staining that is all. She is not having any health issues she sees her primary care provider at the [facility] for primary care and she is not having any issues or concerns she is open to getting tested for STIs even with blood work but will get it some other day. She has a history of abnormal Paps and she had a LEEP in 2014 she delivered her baby in 2016. She believes she had negative Paps in the interim, the last Pap easily accessible today's from 2021 with negative HPV and she also had a negative Pap negative HPV in 2020.. -----Discussed in this visit the following: healthy balanced diet, regular and consistent exercise, getting recommended health screens, doing the best she can for her particular health concerns, kegel exercises, pap smear screening and followup recommendations, mammography screening and SBE, normal changes in cycles in her life stage--- . Orders placed for her to get blood work for STIs she is on the portal and can access results. Reviewed that mammograms will start for her at age 40. Reviewed her history of LEEP and past Paps. per [facility] she should have a Pap 3 years from her last 1, in 2024. Orders: Orders Hepatitis C Antibody Today Z01.419 - Encounter for gynecological examination (general) (routine) without abnormal findings, Z11.3 - Encounter for screening for infections with a predominantly sexual mode of transmission, Z30.431 - Encounter for routine checking of intrauterine contraceptive device, Z87.42 - Personal history of other diseases of the female genital tract HIV Ab/Ag Today Z01.419 - Encounter for gynecological examination (general) (routine) without abnormal findings, Z11.3 - Encounter for screening for infections with a predominantly sexual mode of transmission, Z30.431 - Encounter for routine checking of intrauterine contraceptive device, Z87.42 - Personal history of other diseases of the female genital tract Hepatitis B Surface Antigen Today Z01.419 - Encounter for gynecological examination (general) (routine) without abnormal findings, Z11.3 - Encounter for screening for infections with a predominantly sexual mode of transmission, Z30.431 - Encounter for routine checking of intrauterine contraceptive device, Z87.42 - Personal history of other diseases of the female genital tract Syphilis Screen Today Z01.419 - Encounter for gynecological examination (general) (routine) without abnormal findings, Z11.3 - Encounter for screening for infections with a predominantly sexual mode of transmission, Z30.431 - Encounter for routine checking of intrauterine contraceptive device, Z87.42 - Personal history of other diseases of the female genital tract Coding Level of Care Code Est Pt Prev Care [id number]([id number]) Diagnoses Hx of abnormal cervical Pap smear Z87.42 Encounter for routine checking of intrauterine contraceptive device (IUD) Z30.431 Encounter for screening examination for sexually transmitted disease Z11.3 Well woman exam with routine gynecological exam Z01.419
== END 2024-02-03 14:44 | disposition home or self-care (01) ==
PROVIDERS: PCP Family Medicine; Visit Provider Advanced Practice Midwife
DX: Z87.42 Personal history of other diseases of the female genital tract (principal); Z30.431 Encounter for routine checking of intrauterine contraceptive device; Z11.3 Encounter for screening for infections with a predominantly sexual mode of transmission; Z01.419 Encounter for gynecological examination (general) (routine) without abnormal findings
CPT/HCPCS: 99395

== ENCOUNTER 2024-04-04 12:15 | Emergency (ER) | payer MEDICAID, SELFPAY ==
--- NOTE | ~2024-04-04 | XR_ITS ---
CLINICAL HISTORY: pain, decreased AROM Radiographs of the right shoulder, 3 views Comparison: None Findings: No fracture or dislocation. Narrowed acromiohumeral interval. No degenerative change. Bone mineralization is normal. No soft tissue swelling. Impression: No acute findings. Narrowed acromiohumeral interval may indicate rotator cuff pathology. This document has been electronically signed by: Oriana Fitzgerald MD on 04/04/2024 13:58:44
[2024-04-04 13:11] VITALS: BP 148/88; PULSE 77; RESP 18; TEMP 36.8; O2SAT 98; BMI 29.0
--- NOTE | 2024-04-04 13:12 | ED_ITS ---
HPI - General Adult General Chief complaint: Extremity Injury, Upper Stated complaint: L shoulder/arm pain Time Seen by Provider: 04/04/24 15:26 Source: patient Mode of arrival: ambulatory Limitations: no limitations History of Present Illness ED Provider: JADON DSOUZA PA-C HPI narrative: 34 year old female with pmhx significant for asthma, anxiety, depression presents to the ED today for evaluation of atraumatic right shoulder pain x2 3 weeks. Endorses pain primarily to the lateral aspect of the right shoulder that has been worsening since onset. Pain is worse with movement of the shoulder. No radiation. Now has associated intermittent numbness down the right upper extremity. She has been trialing heat, ice, and motrin at home with minimal relief. Denies neck pain, chest pain, fever, chills, sob. Related Data Home Medications ?Medication ?Instructions ?Recorded ?Confirmed bupropion HCl 150 mg 24 hr tablet, 150 mg PO QAM 06/09/20 02/03/24 extended release (Wellbutrin XL) levonorgestrel 21 mcg/24 hr (up to intrauterine 06/09/20 02/03/24 8 years) 52 mg intrauterine device (Mirena) tramadol 50 mg tablet 50 mg PO DAILY 06/09/20 02/03/24 acetaminophen 650 mg 0 mg PO 04/02/21 02/03/24 tablet,extended release (Mapap Arthritis Pain) baclofen 10 mg tablet 10 mg PO TID 04/02/21 02/03/24 buspirone 10 mg tablet 10 mg PO BID 04/02/21 02/03/24 cholecalciferol (vitamin D3) 50 50 mcg PO DAILY 04/02/21 02/03/24 mcg (2,000 unit) capsule diclofenac potassium 50 mg tablet 50 mg PO DAILY 10/12/21 02/03/24 Previous Rx's ?Medication ?Instructions ?Recorded albuterol sulfate 2.5 mg/0.5 mL 2.5 mg (0.5 mL) inhalation Q20M 03/01/23 solution for nebulization #30 ea albuterol sulfate 90 mcg/actuation 1 inh inhalation QID #8.5 grams 03/01/23 aerosol inhaler prednisone 20 mg tablet 40 mg (2 x 20 mg) PO DAILY 5 days 04/04/24 #10 tabs tramadol 50 mg tablet 50 mg PO Q8H PRN pain (scale score 04/04/24 4-6) #7 tabs Allergies Allergy/AdvReac Type Severity Reaction Status Date / Time No Known Allergies Allergy Verified 04/04/24 13:14 Review of Systems Review of Systems: Constitutional: No fever, chills, fatigue, night sweats, weight changes ENT/Mouth: No ear pain, hearing loss, nasal congestion, sinus pain, rhinorrhea, sore throat Eyes: No eye pain, swelling, redness, vision changes, discharge Cardio: No chest pain, palpitations, [place], orthopnea, peripheral edema Pulm: No SOB, cough, sputum, wheezing, dyspnea, hemoptysis GI: No nausea, vomiting, hematemesis, abdominal pain, diarrhea, constipation, hematochezia, melena : No irregular bleeding, dysuria, frequency, urgency, hesitancy, hematuria, flank pain, urinary flow changes, urinary incontinence or retention MSK: No back pain, neck pain, joint pain, myalgias, +right shoulder pain Skin: No lesions, rashes Neuro: No weakness, numbness, paresthesias, LOC, dizziness, headache Psych: No anxiety/panic, depression, SI/HI, AH/VH All other systems reviewed and are negative. [facility] Past Medical History Attestation statement: The following information was validated with the patient. Source: old records reviewed and nursing notes reviewed Medical History Well woman exam with routine gynecological exam Encounter for routine checking of intrauterine contraceptive device (IUD) Encounter for removal and reinsertion of intrauterine contraceptive device (IUD) Presence of 52 mg levonorgestrel-releasing intrauterine device (IUD) Potential exposure to STD Cervical cancer screening Asthma Back pain Depression Anxiety Surgical History Hx of appendectomy Family History Family History Paternal Grandfather Lung cancer Mother Depressed Anxiety Bipolar 1 disorder, depressed Social History Social History Alcohol intake: never Patient Tobacco Use Status: Never used Tobacco Smoked in Last 30 Days: No Use of substances other than those prescribed or required for medical reasons: No Advance Directives: No Advance Directives Information Provided: No Do you have a plan to hurt others: No Plan Gender identity: Female Physical Exam ED Vital Signs: Vital Signs - 24 hr 04/04/24 13:11 04/04/24 15:40 04/04/24 17:06 Temperature 98.2 F 0 F L Pulse Rate 77 76 76 Respiratory Rate 18 20 20 Blood Pressure 148/88 H 120/77 120/77 Pulse Oximetry 98 97 97 Oxygen Delivery Method Room Air Room Air Room Air BMI result Body Mass Index 29.0 Vital signs stable General: Well appearing, in no acute distress. Skin: Warm, dry, intact. No rashes or lesions. Head: Normocephalic, atraumatic. EENT: Hearing is intact b/l. Conjunctiva clear. PERRLA. EOM intact. Moist mucous membranes.? Cardiac: Chest wall symmetric. RRR Lungs: Normal respiratory effort without accessory muscle use Back: No midline spinous or paraspinal tenderness. No step off deformity. Ext: +no overlying deformity, erythema, swelling to the right shoulder. Endorses pain with extension and abduction of the shoulder. Range of motion significantly limited secondary to pain. Patient has to assist with her left upper extremity when raising her right upper extremity. Tender to palpation of lateral and posterior right shoulder without palpable deformity, crepitus, wa rmth or fluctuance. No tenderness over right elbow. sensation intact. Choker Hooker strength intact. 2+ radial/ulnar pulse intact. Neuro: AOx3. Normal speech. Ambulating with steady gait. Course Course Course Narrative: This is an RME performed by Prasanth Lo CNP: Additional HPI, ROS, PE not included below will be deferred to primary provider. Patient is a 30-year-old female who presents to the emergency department for evaluation of right shoulder/arm pain ongoing for the past 2-3 weeks progressively worsening with associated numbness. Reports severe pain with movement of the shoulder. Awoke suddenly with this pain. No relief from ice, heat, ibuprofen. Has not seen PCP yes for this. Plan: XR Reevaluation(s) Reevaluation #1: X-ray right shoulder without fracture or dislocation. There is narrowing of the acromiohumeral interval concerning for rotator cuff pathology. Her exam findings are concerning for rotator cuff injury with difficulty/pain on abduction and extension. Will place patient in sling. Treated with a dose of tramadol in the ED today. Will send tramadol and prednisone to pharmacy. I informed patient that she needs to follow-up with the orthopedic doctor as she likely needs outpatient imaging to confirm rotator cuff injury. Patient has remained stable throughout ED visit today. Discussed worrisome signs and symptoms and when to return to the ED. All questions answered at this time. Patient is agreeable with disposition and stable for discharge. Medications Administered Discontinued Medications Generic Name Dose Route Start Last Admin Trade Name Damari PRN Reason Stop Dose Admin Tramadol HCl 50 mg 04/04/24 16:46 04/04/24 17:00 Tramadol Hcl 50 Mg Tablet PO 04/04/24 16:47 50 mg ONCE ONE Administration Procedures Orthopedic Splinting/Casting Injury #1: Side: right Upper Extremity Injury Location: shoulder Upper Extremity Immobilizer: sling/shoulder immobilizer Medical Decision Making Medical Decision Making MDM Narrative: 34 year old female with pmhx significant for asthma, anxiety, depression pre sents to the ED today for evaluation of atraumatic right shoulder pain x2 3 weeks. Patient initially hypertensive to 148/88 on arrival. Vitals are otherwise WNL. Afebrile. On exam, there is no overlying deformity, erythema, swelling to the right shoulder. Endorses pain with extension and abduction of the shoulder. Range of motion significantly limited secondary to pain. Patient has to assist with her left upper extremity when raising her right upper extremity. Tender to palpation of lateral and posterior right shoulder without palpable deformity, crepitus, warmth or fluctuance. No tenderness over right elbow. sensation intact. Choker Hooker strength intact. 2+ radial/ulnar pulse intact. Differential diagnosis includes tendinitis, bursitis, rotator cuff injury, fracture, dislocation. Unlikely gout, pseudogout, septic joint. Unlikely neurovascular compromise, threat to limb, compartment syndrome. Unlikely ACS, arrhythmia, pneumothorax. Plan for imaging, pain control and re-evaluation. Differential Diagnosis Differential Diagnoses: The differential diagnosis associated with the presentation includes As above Admission/Observation Not indicated Independent Interpretation I performed an independent interpretation of an: Plain X-Ray Interpretation: X-ray right shoulder without fracture Radiology Impression Discussion of test interpretation with radiology: I have reviewed the radiologist's reading. Radiologist Impression: Ordering Physician: Mirella Lo CNP Date of Service: 04/04/24 Procedure(s): XR shoulder RT min 2V Accession Number(s): [id number] cc: Mirella Lo CNP; Kellen Mccray DO~ CLINICAL HISTORY: pain, decreased AROM Radiographs of the right shoulder, 3 views Comparison: None Findings: No fracture or dislocation. Narrowed acromiohumeral interval. No degenerative change. Bone mineralization is normal. No soft tissue swelling. Impression: No acute findings. Narrowed acromiohumeral interval may indicate rotator cuff pathology. This document has been electronically signed by: Oriana Fitzgerald MD on 04/04/2024 13:58:44 External Record Review External record reviewed: Inpatient record Prescription Management I considered prescription management with: Pain Medication (tramadol) and Other (prednisone) Social Determinants Patient?s care significantly limited by Social Determinants of Health including: Other Social Determinant of Health Critical Care Time Critical Care Time Critical Care Time: No Discharge Plan Discharge Clinical Impression: Injury of right rotator cuff Patient Disposition: Home, Self-Care Instructions: Rotator Cuff Injury (ED), How to Use a Sling (ED) Additional Instructions: You were evaluated in the ED today for your right shoulder pain. The x-ray of your right shoulder does not demonstrate fracture however there is concern that you injured your rotator cuff (a group of muscles in your shoulder). We have placed your arm in a sling today. I recommend you take 600mg ibuprofen every 6 hours or Tylenol 650mg every 6 hours as needed for pain. If needed, you can alternate these medications so that you take one medication every 3 hours. For example, at noon take ibuprofen, then at 3pm take Tylenol, then at 6pm take ibuprofen. Tramadol is a controlled pain medication that has been sent to your pharmacy for you to take as needed for breakthrough pain. Prednisone as a steroid that has been sent to your pharmacy for you to take over the next 5 days. This will help with inflammation. As discussed, you need to follow up with the orthopedic surgeon. You have been provided with a referral. Call them to establish care. They will not call you. Return with any new or worsening symptoms. In the case of an emergency call 911.. Prescriptions: New prednisone 20 mg tablet 40 mg PO DAILY 5 Days Qty: 10 0RF tramadol 50 mg tablet 50 mg PO Q8H PRN (Reason: pain (scale score 4-6)) Qty: 7 0RF No Action albuterol sulfate 90 mcg/actuation HFA aerosol inhaler 1 inh inhalation QID Qty: 8.5 0RF albuterol sulfate 2.5 mg/0.5 mL solution for nebulization 2.5 mg inhalation Q20M Qty: 30 0RF Rx Instructions: for up to 3 doses bupropion HCl [Wellbutrin XL] 150 mg tablet extended release 24 hr 150 mg PO QAM tramadol 50 mg tablet 50 mg PO DAILY Mirena 20 mcg/24 hours (6 yrs) 52 mg intrauterine device intrauterine acetaminophen [Mapap Arthritis Pain] 650 mg tablet extended release 0 mg PO baclofen 10 mg tablet 10 mg PO TID cholecalciferol (vitamin D3) 50 mcg (2,000 unit) capsule 50 mcg PO DAILY buspirone 10 mg tablet 10 mg PO BID diclofenac potassium 50 mg tablet 50 mg PO DAILY [place] [facility] [place] Group] - 3 days (rotator cuff injury) Kellen Mccray DO [Primary Care Provider] - Interventions: ED Discharge Assessment Last Done: 04/04/24 17:06 Discharge Date/Time: 04/04/24 17:07 Print Language: Welsh
[2024-04-04 15:40] VITALS: BP 120/77; PULSE 76; RESP 20; O2SAT 97
[2024-04-04] MEDS: traMADoL HCL 50 MG TABLET PO (17:00)
[2024-04-04 17:06] VITALS: BP 120/77; PULSE 76; RESP 20; TEMP -17.7; TEMP 0; O2SAT 97
== END 2024-04-04 17:07 | disposition home or self-care (01) ==
PROVIDERS: Emergency Provider Emergency Medicine Emergency Medical Services; PCP Family Medicine
DX: S46.001A Unspecified injury of muscle(s) and tendon(s) of the rotator cuff of right shoulder, initial encounter (principal); X58.XXXA Exposure to other specified factors, initial encounter; Y93.9 Activity, unspecified; Y92.9 Unspecified place or not applicable; Y99.8 Other external cause status
CPT/HCPCS: 73030; 99284

== ENCOUNTER → 2024-04-04 13:14 | Outpatient (BNV) | payer MEDICAID, SELFPAY | PROVIDERS: PCP Family Medicine; Visit Provider Radiology Diagnostic Radiology | DX: M25.511 Pain in right shoulder (principal); R29.898 Other symptoms and signs involving the musculoskeletal system | CPT/HCPCS: 73030 ==

== ENCOUNTER 2024-09-22 13:08 | Outpatient (REF) | payer MEDICAID, SELFPAY ==
--- OUTSIDE RECORDS SUMMARY | 2024-09-22 13:45 | XMS_ITS | Encounter Summary ---
Author Organization [employer] Address [address] [place] [address] [address] [place] [address] Care Team Providers Care [employer] Specialist Name Role Phone Kellen Mccray DO Primary Care Provider [phone] Reason for Visit * Reason Comments Med Refill Encounter Details Date Type Department Care Team ([facility] st Contact Info) Description 05/22/2023 Refill [facility] MEDICINE [address] [place] [address] Kellen Mccray DO [address] [place] [address] Social History Tobacco Use Types Packs/Day Years Used Date Smoking Tobacco: Never Passive Smoke Exposure: Never Smokeless Tobacco: Never Alcohol Use Standard Drinks/Week Comments Never 0 (1 standard drink = 0.6 oz pur e alcohol) PHQ-2 Answer Date Recorded Patient Health Questionnaire-2 Score 0 12/27/2022 Housing Stability Answer Date Recorded What is your housing situation today? I have devon watts 01/06/[address] you li ve. Do you have problems with any of the following? None of the above 01/06/2023 Food Insecurity Answer Date Recorded Within the past 12 months, y ou worried that your food would run out before you got money to buy more: Never True 01/06/2023 Within the past 12 months,th e food you bought just didn't last and you didn't have enough money to get more: Never True Transportation Answer Date Recorded In the past 12 months, has l ack of transportation kept you from medical appts, meetings, work or from getting things needed for daily living? Yes, it has kept me from medical appointments or getting medications. 12/28/2022 Utilities Answer Date Recorded In the past 12 months, has t he electric, gas, oil or water company threatened to shut off services in your home? Yes 12/28/2022 Depression Answer Date Recorded Patient Health Questionnaire-2 Score 0 12/27/2022 Comments Unknown Sex and Gender Information Value Date Recorded Sex Assigned at Female 01/21/2022 10:21 AM EDT Legal Sex Female 10:21 AM EDT Gender Identity Female 01/21/2022 10:21 AM EDT Sexual Orientation Choose not to disclose 2021 10:21 AM EDT documented as of this encounter Plan of Treatment Not on file documented as of this encounter Visit Diagnoses Not on filedocumented in this encounter Care Teams [employer] Specialist Relationship Specialty Start Date End Date Kellen Mccray DO [address] [place] [id number] PCP - General Family Medicine 03/24/18 documented as of this encounter
== END 2024-09-22 13:09 | disposition home or self-care (01) ==
LOC: HO.HHCLNP 13:08
PROVIDERS: Visit Provider Emergency Medicine
DX: R10.2 Pelvic and perineal pain (principal)
CPT/HCPCS: 87086